=== PATIENT | male | born 1960 | race Caucasian/White ===

== ENCOUNTER → 2016-09-01 | Outpatient (CLI) | payer OTHER ==
[2016-09-01 16:41] LABS: ALT 29 U/L (21-72); AST 25 U/L (17-59); Alkaline Phosphatase 100 U/L (38-126); Anion Gap 10 mmol/L; Blood Urea Nitrogen 21 mg/dL (9-20); Calcium 9.3 mg/dL (8.4-10.2); Carbon Dioxide 31 mmol/L (22-30); Chloride 99 mmol/L (98-107); Glucose 89 mg/dL (74-99); Magnesium 2.3 mg/dL (1.6-2.3); Non-African American GFR(MDRD) >60 (>60 ml/min/1.73 sqM); Potassium 4.5 mmol/L (3.5-5.1); Sodium 140 mmol/L (137-145); Total Bilirubin 0.5 mg/dL (0.2-1.3)
== END | disposition home or self-care (01) ==
LOC: LABWHC1 15:59
PROVIDERS: ATTEND Internal Medicine Clinical Cardiac Electrophysiology
DX: I50.9 Heart failure, unspecified (principal)
CPT/HCPCS: 36415; 80053; 83735

== ENCOUNTER → 2016-11-19 | Outpatient (CLI) | payer OTHER ==
[2016-11-19 07:14] LABS: Blood Urea Nitrogen 23 mg/dL (9-20); Non-African American GFR(MDRD) >60 (>60 ml/min/1.73 sqM)
--- NOTE | 2016-11-19 12:26 | CT ---
EXAMINATION TYPE: CT abdomen wo/w con DATE OF EXAM: 11/19/2016 COMPARISON: NONE INDICATION: Liver Mass DLP: 1922.30 mGycm, Automated exposure control for dose reduction was used. CONTRAST: 100 ml mL of Omnipaque 300. Study performed with Oral Contrast TECHNIQUE: Axial images were obtained from above the diaphragm to the pubic rami in the axial plane a t 5 mm thick sections. Reconstructed images are reviewed on the computer in the coronal plane. FINDINGS: Limited CT sections are obtained the lung bases. Minimal linear opacities in the lingula, likely on the basis of atelectasis. CT ABDOMEN: Liver: Normal Spleen: Normal Pancreas: Normal Adrenal glands: The adrenal glands are normal. Gallbladder: Normal Kidneys: No masses are evident. No hydronephrosis is present. No cysts are present. Delayed images were obtained through the kidneys, which remain unremarkable. Aorta: Vascular calcification is within the aorta. Inferior vena cava: Normal. CT PELVIS: Limited to the upper pelvis. Loops of bowel within the abdomen and pelvis are normal. There are loops of bowel which are incom pletely distended or lack oral contrast limiting their evaluation. Appendix: Normal as visualized. Osseous structures: No suspicious lytic or sclerotic lesions. IMPRESSIONS: 1. No suspicious hepatic lesion. If there are comparison images which indicate a hepatic mass, murtaza rison with these images would be useful. Otherwise, MRI with contrast may be more sensitive for subtl e hepatic lesions.
== END | disposition home or self-care (01) ==
LOC: RADCTMAIN 06:38
PROVIDERS: ATTEND Family Medicine
DX: R16.0 Hepatomegaly, not elsewhere classified (principal)
CPT/HCPCS: 82565; 84520; 74170; 36415; Q9967

== ENCOUNTER → 2018-05-13 | Outpatient (CLI) | payer OTHER ==
[2018-05-13 10:16] LABS: Anion Gap 7 mmol/L; Blood Urea Nitrogen 21 mg/dL (9-20); Calcium 9.3 mg/dL (8.4-10.2); Carbon Dioxide 28 mmol/L (22-30); Chloride 104 mmol/L (98-107); Glucose 107 mg/dL (74-99); Potassium 4.9 mmol/L (3.5-5.1); Sodium 139 mmol/L (137-145)
== END | disposition home or self-care (01) ==
LOC: LABPAT 09:12
PROVIDERS: ATTEND Internal Medicine Clinical Cardiac Electrophysiology
DX: Z01.812 Encounter for preprocedural laboratory examination (principal); I50.22 Chronic systolic (congestive) heart failure; Z95.810 Presence of automatic (implantable) cardiac defibrillator
CPT/HCPCS: 36415; 80048

== ENCOUNTER 2018-05-25 07:47 | Day surgery (SDC) | payer OTHER ==
[2018-05-18 12:07] VITALS: BMI 36.0
[~2018-05-25 07:47] MED LIST: SODIUM CHLORIDE 0.9% 1,000 ML IV SCH
[2018-05-25 08:37] VITALS: BP 109/65; PULSE 59; RESP 18; TEMP 98
--- NOTE | 2018-05-25 11:12 | P.PCN ---
Preoperative Diagnosis: Diagnosis Reduced Bi V pacing on account of over sensing of the P wave and the T waves Cinefluoroscopy of the leads Cinefluoroscopy revealed that the atrial lead is in stable position and the right atrial appendage anterolaterally, RV ICD lead in the septum of the right ventricle and LV lead also in the lateral/posterior lateral vein stable. No lead dislodgment ICD interrogation with reprogramming ICD was interrogated and reprogrammed 1. The pacemaker and ICD maxim sensitivity was decoupled 2. RV sensitivity, pacing, changed to 0.5 mV 3. Increased post paced tachycardia from 0 ms to 95 ms, post Bi V pacing 4. Increased threshold start from 1 mV to 1.3 mV for RV 5. LV offset of 35 ms 6. Short AV delay of 130 milliseconds Patient was observed for any over sensing of P waves P waves. None noted after these changes are made in different positions: supine, left lateral, right lateral, sitting up Condition: stable
== END 2018-05-25 10:27 | disposition home or self-care (01) ==
LOC: CATHEP 07:47
PROVIDERS: ATTEND Internal Medicine Clinical Cardiac Electrophysiology
DX: Z45.02 Encounter for adjustment and management of automatic implantable cardiac defibrillator (principal); I10 Essential (primary) hypertension; I50.22 Chronic systolic (congestive) heart failure; G47.33 Obstructive sleep apnea (adult) (pediatric); I47.1 Supraventricular tachycardia; I42.9 Cardiomyopathy, unspecified; I44.7 Left bundle-branch block, unspecified; Z79.82 Long term (current) use of aspirin; Z79.899 Other long term (current) drug therapy; Z72.0 Tobacco use
CPT/HCPCS: 76000; 93642

== ENCOUNTER → 2018-12-27 | Outpatient (CLI) | payer OTHER ==
--- NOTE | 2018-12-27 22:23 | PN ---
PROGRESS NOTE 58-year-old male patient coming in for annual check regarding obstructive sleep apnea. The patient had an AHI of 17 consistent with moderate to severe disease and the patient had been on a CPAP pressure of 15 cm of water. He has severe cardiomyopathy and is a recipient of an AICD implant. He does not have any active manifestations of congestive heart failure. No cardiac events over the past 1 year. He is still using his CPAP which is set at a pressure of 15 cm of water. Based on the compliance data, the patient has been utilizing his CPAP more than 4 hours 100% of the time. He is using a Mirage Quattro full face mask. His leak is 20 L/minute. His AHI is down to 0.2. He has no other new complaints otherwise for now. REVIEW OF SYSTEMS: Fourteen-point review of system was done and positive findings are mentioned above in the history of present illness. PHYSICAL EXAMINATION: BP is 106/63, pulse 59, respirations 16, temp 98.5 saturation 95% on room air. Weight is 235, height is 5 feet 6 inches, [place] score is a 2, BMI 37.3. General appearance is calm and comfortable. Head is atraumatic, normocephalic. NECK: Supple. No JVD. No goiter or neck masses. LUNGS: Clear to auscultation. HEART: Sounds regular rate and rhythm. Normal S1, S2. No S3. No murmurs. ABDOMEN: Soft, nontender. No organomegaly. EXTREMITIES: No edema. No cyanosis or clubbing. NEUROLOGIC: Alert and oriented x3. No focal neurological deficits. PSYCHIATRIC: Negative for anxiety or depression. SKIN: Negative for any wounds or ulceration pressure. IMPRESSION: 1. Obstructive sleep apnea moderately severe AHI of 17, currently on CPAP pressure of 15. 2. Obesity with interval 9 pounds weight loss. 3. Cardiomyopathy with previous AICD placement. PLAN: 1. Dropped CPAP pressure down to 13 cm of water. 2. Offer this patient a DreamWear under the nose medium size. 3. Encourage further weight loss. 4. Tight control of cardiovascular risk factors. 5. See me back in a year's time. Earlier if needed. Treatment is successful for now. MMODL / IJN: [id number] /
== END | disposition home or self-care (01) ==
LOC: SLEEP 16:33
PROVIDERS: ATTEND Internal Medicine Critical Care Medicine
DX: G47.33 Obstructive sleep apnea (adult) (pediatric) (principal); E66.9 Obesity, unspecified; I42.9 Cardiomyopathy, unspecified; R63.4 Abnormal weight loss; Z95.810 Presence of automatic (implantable) cardiac defibrillator; Z99.89 Dependence on other enabling machines and devices

== ENCOUNTER → 2019-04-08 | Outpatient (CLI) | payer OTHER ==
[2019-04-08 17:28] LABS: African American GFR (CKD) 84.1 (60.0-200.0); Albumin 4.2 g/dL (3.80-4.90); Albumin/Globulin Ratio 1.68 (1.60-3.17); Anion Gap 5.4 mmol/L (4.00-12.00); BUN/Creat Ratio 26.36 Ratio (12.00-20.00); Calcium 9.2 mg/dL (8.7-10.3); Carbon Dioxide 29.6 mmol/L (21.6-31.8); Chol/HDL Ratio 4.06; Globulin 2.5 g/dL (1.6-3.3); Potassium 4.5 mmol/L (3.5-5.5); Total Bilirubin 0.4 mg/dL (0.2-1.2); Total Protein 6.7 g/dL (6.2-8.2)
== END | disposition home or self-care (01) ==
LOC: LABWHC1 08:33
PROVIDERS: ATTEND Internal Medicine Clinical Cardiac Electrophysiology
DX: I50.9 Heart failure, unspecified (principal)
CPT/HCPCS: 36415; 80053; 80061; 84443

== ENCOUNTER 2020-09-12 09:00 | Day surgery (SDC) | payer BC, OTHER ==
[2020-09-11 10:48] VITALS: BMI 37.4
[2020-09-12 09:30] VITALS: BP 113/71; PULSE 76; RESP 18; TEMP 97.7
[2020-09-12] MEDS ORDERED: IOPAMIDOL-250 50ML BTL IV ONE (11:01)
--- NOTE | 2020-09-12 11:49 | P.EPCON ---
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 Cine fluoroscopy of the leads was performed. This was evaluated under magnified views. No fractures or breaks noted Impression Occluded left axillary/subclavian venous junction with collaterals No fractures or breaks noted on the RV lead Plan Observation for now, watch lead impedances and 4 episodes of noise
== END 2020-09-12 11:48 | disposition home or self-care (01) ==
LOC: CATHEP 09:00
PROVIDERS: ATTEND Internal Medicine Clinical Cardiac Electrophysiology
DX: Z45.02 Encounter for adjustment and management of automatic implantable cardiac defibrillator (principal); I42.8 Other cardiomyopathies; I82.B12 Acute embolism and thrombosis of left subclavian vein
CPT/HCPCS: 36005; 75820; Q9966

== ENCOUNTER → 2020-10-11 | Outpatient (CLI) | payer BC, OTHER ==
[2020-10-11 10:35] LABS: HCT 44.4 % (39.0-53.0); HGB 14.5 gm/dL (13.0-17.5); MCH 29.4 pg (25.0-35.0); MCHC 32.7 g/dL (31.0-37.0); Mean Platelet Volume 7.8; Platelet Count 211 k/uL (150-450); RBC 4.93 m/uL (4.30-5.90); RDW 13.3 % (11.5-15.5); WBC 9.9 k/uL (3.8-10.6)
[2020-10-11 10:51] LABS: African American GFR (CKD) >90 (>60 ml/min/1.73 sqM); Anion Gap 8 mmol/L; Blood Urea Nitrogen 20 mg/dL (9-20); Carbon Dioxide 28 mmol/L (22-30); Chloride 104 mmol/L (98-107); Non-African American GFR(CKD) >90 (>60 ml/min/1.73 sqM); Potassium 4.4 mmol/L (3.5-5.1); Sodium 140 mmol/L (137-145)
== END | disposition home or self-care (01) ==
LOC: LABPAT 09:39
PROVIDERS: ATTEND Internal Medicine Clinical Cardiac Electrophysiology
DX: Z01.812 Encounter for preprocedural laboratory examination (principal); I42.8 Other cardiomyopathies
CPT/HCPCS: 80051; 82565; 84520; 85027

== ENCOUNTER 2020-10-22 08:51 | Day surgery (SDC) | payer BC, OTHER ==
[2020-10-17 11:47] VITALS: BMI 36.0
[~2020-10-22 08:51] MED LIST changes: +ceFAZolin 1 GM in SODIUM CHLORIDE 0.9% 250 ML IRRIGATION PRN
[2020-10-22 09:17] VITALS: RESP 18; TEMP 98
[2020-10-22] MEDS ORDERED: fentaNYL (PF) 50 MCG/ML 2 ML AMP ONE (11:07)
[2020-10-22] MEDS ORDERED: MIDAZOLAM 2 MG/2 ML VIAL ONE (11:07)
[2020-10-22] MEDS ORDERED: PROPOFOL 10 MG/ML 20 ML VIAL IV ONE (11:07)
[2020-10-22] MEDS ORDERED: LIDOCAINE 1% INJ 10MG/ML (20 ML MDV) SQ ONE (11:59)
[2020-10-22] MEDS ORDERED: ACETAMINOPHEN TAB 325 MG TAB PO PRN (13:34)
[2020-10-22] MEDS ORDERED: HYDROcodone/APAP 5-325MG 1 EACH TAB PO PRN (13:34)
--- NOTE | 2020-10-22 14:11 | CE ---
CARDIAC ELECTROPHYSIOLOGY REPORT Elias Honeycutt is a 60-year-old male patient with nonischemic cardiomyopathy, status post biventricular ICD for congestive heart failure. His device is at [facility]. He is brought in for a Bi-V ICD generator change. The patient is brought to the EP lab in a fasting state. Written informed consent was obtained prior to the procedure. The left shoulder area was prepped and draped as per protocol and 1% lidocaine was used for local anesthesia. A 4 cm incision was made in the left and carried down to the level of the generator. The generator was explanted. The leads were inspected. The insulation was within normal limits. Partial capsulectomy was performed. The old generator was explanted. The new generator was implanted. This was a [employer] Assura model #PN8361-11Z and serial #[id number], [employer]. The right atrial lead was a model #1688TC, 52 cm in length and serial #[id number]. P- waves were 5 mV. Pacing impedance 430 ohms, pacing threshold 0.6 V at 0.5 milliseconds. The RV lead was a Riata Optim ST. R-waves 6.6 mV. Pacing impedance 390 ohms. Pacing threshold 2 V at 0.5 milliseconds. High-voltage impedance 105 ohms. The LV lead was a model #1156T, 75 cm in length and serial #[id number]. Pacing impedance 400 ohms. Pacing threshold 0.75 V at 0.5 milliseconds. The leads and generator were then placed in subfascial pocket. The wound was closed in 3 layers and dressed per protocol. The device was then programmed according to the MADIT-RIT programming. Occasionally, RV noise has been seen on this lead and therefore fluoroscopy was also performed. DFT testing was also performed last year and his DFT was at 10 joules and VF was detected normally. At this time, the interrogation of the leads were within normal limits. RESULT: Successful biventricular ICD generator change for device at [facility]. MMODL / IJN: [id number] /
[2020-10-22] MEDS ORDERED: ACETAMINOPHEN IV (For NPO) 1,000 MG in EMPTY BAG 1 BAG IVPB ONE (15:00)
[2020-10-22 15:46] VITALS: BP 129/73; PULSE 70
[2020-10-22] MEDS ORDERED: NON FORMULARY DRUG (Spironolactone [Aldactone] 50 MG Tablet) PO SCH (19:00)
[2020-10-22] MEDS ORDERED: SACUBITRIL/VALSARTAN 49 MG-51 MG TABLET PO SCH (21:00)
[2020-10-22] MEDS ORDERED: ATORVASTATIN 10 MG TAB PO SCH (21:00)
[2020-10-22] MEDS ORDERED: carvediloL 12.5 MG TAB PO SCH (21:00)
[2020-10-23] MEDS ORDERED: ASPIRIN 325 MG TAB PO SCH (09:00)
[2020-10-23] MEDS ORDERED: FUROSEMIDE 80 MG TAB PO SCH (09:00)
== END 2020-10-22 16:57 | disposition home or self-care (01) ==
LOC: CATHEP 08:51
PROVIDERS: ATTEND Internal Medicine Clinical Cardiac Electrophysiology
DX: Z45.02 Encounter for adjustment and management of automatic implantable cardiac defibrillator (principal); I42.8 Other cardiomyopathies; I50.21 Acute systolic (congestive) heart failure; I44.7 Left bundle-branch block, unspecified; I47.1 Supraventricular tachycardia; I10 Essential (primary) hypertension; Z20.822 Contact with and (suspected) exposure to COVID-19; G47.33 Obstructive sleep apnea (adult) (pediatric); E78.5 Hyperlipidemia, unspecified; E66.9 Obesity, unspecified; Z68.36 Body mass index [BMI] 36.0-36.9, adult; Z87.891 Personal history of nicotine dependence; Z79.82 Long term (current) use of aspirin; Z79.899 Other long term (current) drug therapy
CPT/HCPCS: 33264; 87635; C1882; J2250; J0690; J2001; J3010; J2704

== ENCOUNTER 2020-10-26 10:13 | Emergency (ER) | payer BC, OTHER ==
[2020-10-26 10:28] VITALS: BP 111/84; PULSE 74; RESP 18; TEMP 98.4
--- NOTE | 2020-10-26 10:33 | ED ---
General Adult HPI - General Chief complaint: Skin/Abscess/Foreign Body Stated complaint: recheck Time Seen by Provider: 10/26/20 10:18 Source: patient, RN notes reviewed Mode of arrival: ambulatory - History of Present Illness Initial comments: This is a 58-year-old male who received a pacemaker 4 days ago who is back today for evaluation of the pacemaker site he apparently has some blistering underneath the bandage. He denies any fevers chills nausea vomiting sweats shortness breath or other symptoms no palpitations. No other complaints or modifying factors at this time - Related Data Home Medications Medication Instructions Recorded Confirmed Aspirin 325 mg PO DAILY 07/17/14 10/22/20 Atorvastatin Calcium [Lipitor] 10 mg PO HS 07/17/14 10/22/20 Sacubitril/Valsartan [Entresto 49 1 each PO BID 05/18/18 10/22/20 mg-51 mg Tablet] Carvedilol [Coreg] 12.5 mg PO BID 09/11/20 10/22/20 Furosemide [Lasix] 80 mg PO DAILY 09/11/20 10/22/20 Spironolactone [Aldactone] 50 mg PO 1900 09/11/20 10/22/20 Previous Rx's Medication Instructions Recorded Bacitracin Zinc/Polymyxin B 1 applic TOPICAL BID #15 gm 10/26/20 [Bacitracin-Polymyxin Ointment] Allergies Allergy/AdvReac Type Severity Reaction Status Date / Time No Known Allergies Allergy Verified 10/22/20 09:05 Review of Systems ROS Statement: Those systems with pertinent positive or pertinent negative responses have been documented in the HPI. ROS Other: All systems not noted in ROS Statement are negative. Past Medical History Past Medical History: Skin Disorder, Sleep Apnea/CPAP/BIPAP Additional Past Medical History / Comment(s): see Dr Anand Tipton&P, eczema, History of Any Multi-Drug Resistant Organisms: None Reported Past Surgical History: AICD, Heart Catheterization, Pacemaker Additional Past Surgical History / Comment(s): [facility] [facility] AICD, Past Anesthesia/Blood Transfusion Reactions: No Reported Reaction Type of Cardiac Device: Permanent Pacemaker, AICD Device Placement Date:: 01/23/2013 Past Psychological History: Depression Smoking Status: Former smoker - Past Family History Daughter(s) Family Medical History: Cancer General Exam - General Exam Comments Initial Comments: This is a well-developed well-nourished awake alert oriented 3 male Limitations: no limitations General appearance: alert, in no apparent distress Head exam: Present: atraumatic, normocephalic, normal inspection Eye exam: Present: normal appearance Neck exam: Present: normal inspection. Absent: tenderness, meningismus, ly mphadenopathy Respiratory exam: Present: normal lung sounds bilaterally, other (Examination of the pacemaker site I did remove the bandage was approximate 1 cm by half a centi meter in diameter Maricruz seen on the bandage adhesive. The pacemaker site is Steri-Stripped and appears to be intact with no evidence of any drainage or erythema or discharge.). Absent: respiratory distress, wheezes, rales, rhonchi, stridor Cardiovascular Exam: Present: regular rate, normal rhythm, normal heart sounds. Absent: systolic murmur, diastolic murmur, rubs, gallop, clicks Back exam: Present: normal inspection Neurological exam: Present: alert, oriented X3, CN II-XII intact Psychiatric exam: Present: normal affect, normal mood Skin exam: Present: warm, dry, other (As above) Course Vital Signs 10/26/20 10:23 Temperature 98.4 F Pulse Rate 74 Respiratory 18 Rate Blood Pressure 111/84 O2 Sat by Pulse 95 Oximetry Medical Decision Making - Medical Decision Making The patient was seen in the emergency department by Dr. Oliveira'll be placed on bacitracin ointment he will be discharged Disposition Clinical Impression: Blistered skin, Pacemaker, Wound of skin Disposition: HOME SELF-CARE Condition: Good Prescriptions: Bacitracin Zinc/Polymyxin B [Bacitracin-Polymyxin Ointment] 1 applic TOPICAL BID #15 gm Is patient prescribed a controlled substance at d/c from ED?: No Referrals: Dharmesh Callahan MD [Primary Care Provider] - 1-2 days
[2020-10-26] MEDS ORDERED: BACITRACIN OINT 1 EACH PACKET TOPICAL ONE (11:34)
== END 2020-10-26 11:42 | disposition home or self-care (01) ==
LOC: EC 10:13
DX: S20.329A Blister (nonthermal) of unspecified front wall of thorax, initial encounter (principal); Z79.82 Long term (current) use of aspirin; Z87.891 Personal history of nicotine dependence; Z95.0 Presence of cardiac pacemaker; X58.XXXA Exposure to other specified factors, initial encounter
CPT/HCPCS: 99283

== ENCOUNTER → 2020-11-26 | Outpatient (CLI) | payer BC, OTHER ==
--- NOTE | 2020-11-26 16:02 | PN ---
PROGRESS NOTE This is a followup study at the sleep center. This patient is known to me regarding his obstructive sleep apnea. The patient is also known to have history of coronary artery disease, ischemic cardiomyopathy with systolic heart failure. The patient has an AICD pacemaker in place. In terms of obstructive sleep apnea, the patient was diagnosed having moderate to severe disease with an AHI of 17 and the patient continues to be on CPAP therapy at a pressure of 13 cm of water. His treatment has been successful over the years and the patient is coming in for a routine annual check. For now, he is still at the pressure of 13. He is calm and comfortable. He does not have any issues with respiratory difficulties at nighttime. He is waking up refreshed and alert during the day. No angina. No palpitations. No shortness of breath. No decompensated heart failure or signs of the heart failure at this point in time. In terms of his compliance data, the patient has been utilizing his machine every day without any interruption. His compliancy for 30 days is at 100%. He has been averaging around 8.5 hours of CPAP use per night. He is using a Dream Wear fullface mask large size and his leak is in order of 97 L/minute, which is a high amount of leak. Nevertheless, the patient is not having any issues with the success of treatment. His AHI is down to 0.7. Otherwise, the patient has no other new complaints. No cough. No sputum production. No chest tightness. No wheezing. No other significant events over the past 12 months. MEDICATION CURRENTLY: Includes Entresto, atorvastatin, Lipitor, Coreg, and aspirin. REVIEW OF SYSTEMS: Fourteen-point review of system was done. Positive findings are all mentioned above in history of present illness. PHYSICAL EXAMINATION: BP is 113/57, pulse 74, respirations 16, temperature 97.1, saturation 99% on room air. Weight is 240. Height is 5 feet 6 inches. [place] score of 4. BMI 38.7. GENERAL APPEARANCE: Calm comfortable in no acute distress. HEAD is atraumatic, normocephalic. NECK: Supple. There is no JVD. No goiter or neck masses. Mallampati class 4. LUNGS: Clear to auscultation. HEART: Heart sounds are regular rate and rhythm. Normal S1, S2. No S3, S4. No murmurs. ABDOMEN: Soft, nontender. No organomegaly. EXTREMITIES: No edema. No cyanosis or clubbing. IMPRESSION: 1. Symptomatic obstructive sleep apnea AHI of 17 adequately treated with a CPAP pressure of 13 cm of water. Treatment continues to be successful. 2. Obesity without any significant interval weight change. His current body weight is down to 40 with a body mass index of 38.7. 3. Hypersomnia recovered [place] score is at 4. 4. Cardiomyopathy, compensated. 5. History of AICD/pacemaker insertion. 6. History of coronary artery disease. PLAN: 1. Keep CPAP therapy same level of pressure. 2. Offer the patient a Dream Wear fullface mask medium size rather than a large to improved underlying air leaks. 3. Encourage weight loss. 4. Optimize cardiovascular risk factors. 5. Refills were given regarding supplies. See me back in a year's time in followup. MMTONIL / ERINN: [id number] /
== END ==
LOC: SLEEP 13:33
PROVIDERS: ATTEND Internal Medicine Critical Care Medicine
DX: G47.33 Obstructive sleep apnea (adult) (pediatric) (principal); E66.9 Obesity, unspecified; I42.9 Cardiomyopathy, unspecified; Z95.0 Presence of cardiac pacemaker; I25.10 Atherosclerotic heart disease of native coronary artery without angina pectoris; Z68.38 Body mass index [BMI] 38.0-38.9, adult; Z79.899 Other long term (current) drug therapy; Z79.82 Long term (current) use of aspirin; Z99.81 Dependence on supplemental oxygen; Z87.891 Personal history of nicotine dependence

== ENCOUNTER → 2021-10-03 | Outpatient (CLI) | payer OTHER ==
[2021-10-03 19:13] LABS: HGB 14.9 g/dL (13.0-17.0); MCV 90.2 fL (80.0-97.0); Mean Platelet Volume 11.1 fL (9.5-12.2); NRBC Per 100 WBC 0 /100 WBCS (0.0-0.0); Platelet Count 219 X 10*3/uL (140-440); RBC 5.32 X 10*6/uL (4.40-5.60); RDW 13.7 % (11.5-14.5); WBC 9.78 X 10*3/uL (4.50-10.00)
[2021-10-03 19:30] LABS: ALT 16 U/L (10-49); AST 20 U/L (14-35); Albumin 4.5 g/dL (3.8-4.9); Albumin/Globulin Ratio 1.32 (1.60-3.17); Alkaline Phosphatase 105 U/L (41-126); BUN/Creat Ratio 18.33 Ratio (12.00-20.00); Blood Urea Nitrogen 16.5 mg/dL (9.0-27.0); Calcium 9.1 mg/dL (8.7-10.3); Carbon Dioxide 27.3 mmol/L (20.0-27.5); Chloride 101 mmol/L (96-109); Chol/HDL Ratio 3.82 Ratio; Globulin 3.4 g/dL (1.6-3.3); Glucose 114 mg/dL (70-110); LDL Cholesterol,Calculated 90.8 mg/dL (0.0-131.0); Magnesium 2.3 mg/dL (1.5-2.4); Non-African American GFR(CKD) 90.6 (60.0-200.0); Potassium 4.2 mmol/L (3.5-5.5); Sodium 139 mmol/L (135-145); Total Protein 7.9 g/dL (6.2-8.2)
== END | disposition home or self-care (01) ==
LOC: LABWHC1 12:00
PROVIDERS: ATTEND Nurse Practitioner Adult Health
DX: E78.5 Hyperlipidemia, unspecified (principal); I10 Essential (primary) hypertension; I47.1 Supraventricular tachycardia; I42.8 Other cardiomyopathies
CPT/HCPCS: 36415; 80053; 80061; 83735; 84443; 85027

== ENCOUNTER → 2022-02-10 | Outpatient (CLI) | payer OTHER ==
--- NOTE | 2022-02-10 16:04 | P.PN ---
Subjective Progress Note Date: 02/10/22 61-year-old male patient is being seen in follow-up regarding his obstructive sleep apnea. The patient has an extensive cardiac disease. The patient is known to have CAD and ischemic cardiomyopathy with impaired systolic heart failure. The patient has AICD in place and the patient also has been on a co mbination of treatment including Entresto, Lasix, Aldactone, and Coreg. The patient also has an AICD in place. No sign cardiac events. The patient is still doing well. The patient has been utilizing his CPAP there. The patient's weight has remained essentially stable without any interval weight gain or weight loss. In terms of his sleep apnea, the patient has moderate severe disease with an AHI of 17 and the patient continues to be on a CPAP pressure of 13 cm of water. The patient is using a large size dreamware fullface mask. His treatment has remained successful. I checked the compliancy on his machine and the patient has been utilizing his machine every night without any interruption in his compliancy for more than 4 hours of usage is in order of 100% and the patient has been averaging around 8.8 hours of CPAP use per night. His leak is in the order of 73 L per minute. Despite think she is really, his treatment successful and his AHI is down to 0.2. He has no complaints. No other episodes of chest pain or shortness of breath or heartburn overnight. He is waking up refreshed and alert during the day. His machine is becoming somewhat malfunctioning and his is exceeded its lifespan in terms of motor life and it is not sending signals through the wifi Objective - Exam BP is 152/73 with a pulse of 63 respiration of 18 and the temperature is 96.9 and oxygen saturations 95% and the weight is 245 and [place] score is at 2 The patient appeared well nourished and normally developed. Vital signs as documented. Head exam is unremarkable. No scleral icterus or corneal arcus noted. Neck is without jugular venous distension, thyromegaly, or carotid bruits. Carotid upstrokes are brisk bilaterally. Lungs are clear to auscultation and percussion. Cardiac exam reveals the PMI to be normally sized and situated. Rhythm is regular. First and second heart sounds normal. No murmurs, rubs or gallops. Abdominal exam reveals normal bowel sounds, no masses, no organomegaly and no aortic enlargement. Extremities are nonedematous and both femoral and pedal pulses are normal.Examination of the skin revealed no evidence of significant rashes, suspicious appearing nevi or other concerning lesions. And the patient has a AICD pocket over the left anterior chest area.Neurologically, the patient is awake and alert and the patient does not have any focal neurological deficit. Cranial nerves are essentially intact. Assessment and Plan Plan: Obstructive sleep apnea with an AHI of 17. The patient continues to undergo successful treatment at a pressure of 13 cm of water. Chronic hypersomnia, recovered upper score is down to 2 Obesity with a stable body weight at 245 pounds Coronary artery disease Ischemic cardiomyopathy currently receiving medical treatment and the patient also has an AICD in place, no cardiac events reported or the past 1 year. Hyperlipidemia Hypertension Plan Continue same cardiac medications Follow-up with cardiology regarding his coronary myopathy No signs of any overt heart failure The patient will be given a new CPAP unit. A prescription was sent to his DME to offer him a newer generation ResMed 11 and at the same time a G were full facemask medium size. I'm going to set up his machine at a pressure of 13 cm of water which has proven to be successful in treating his sleep breathing disorder. The patient's treatment remains successful we'll continue to follow and will make further recommendations. The patient will see back in a year's time in follow-up.
== END ==
LOC: SLEEP 15:06
PROVIDERS: ATTEND Internal Medicine Critical Care Medicine
DX: G47.33 Obstructive sleep apnea (adult) (pediatric) (principal); E66.9 Obesity, unspecified; I25.10 Atherosclerotic heart disease of native coronary artery without angina pectoris; I25.5 Ischemic cardiomyopathy; E78.5 Hyperlipidemia, unspecified; I10 Essential (primary) hypertension; Z99.89 Dependence on other enabling machines and devices; Z87.891 Personal history of nicotine dependence

== ENCOUNTER 2023-12-22 07:35 | Day surgery (SDC) | payer MEDICARE, OTHER ==
[2023-12-20 14:22] VITALS: BMI 36.8
[~2023-12-22 07:35] MED LIST changes: -SODIUM CHLORIDE 0.9% 1,000 ML IV SCH; +TETRACAINE 0.5% OPHTH (PF) DROPS 4 ML BTL OP PRN; -ceFAZolin 1 GM in SODIUM CHLORIDE 0.9% 250 ML IRRIGATION PRN
[2023-12-22 08:02] VITALS: RESP 16; TEMP 97.8
[2023-12-22] MEDS: CYCLOPENTOLATE 1% OPHTH SOLN 2 ML BTL OP PRN (08:06)
[2023-12-22] MEDS: PHENYLEPHRINE 2.5% OPHTH DRP 2ML OP PRN (08:10)
[2023-12-22 08:17] LABS: Glucose,Whole Blood 107 mg/dL (70-110)
[2023-12-22] MEDS: LACTATED RINGERS 1,000 ML IV SCH (08:27)
[2023-12-22] MEDS: IV FLUID CONTINUATION 1,000 ML IV ONE (08:34)
[2023-12-22] MEDS ORDERED: fentaNYL (PF) 50 MCG/ML 2 ML AMP ONE (09:36)
[2023-12-22] MEDS ORDERED: MIDAZOLAM 2 MG/2 ML VIAL ONE (09:36)
[2023-12-22] MEDS: EPINEPHrine (PF) 0.3 ML in BALANCED SALT IRRIG SOLN COMB2 500 ML IRRIGATION ONE (09:51)
[2023-12-22] MEDS: MOXIFLOXACIN HCL 0.5% DROPS 3 ML BTL OP PRN (09:51)
[2023-12-22] MEDS: HYALURONATE SODIUM INTRAOCULAR 1 EACH SYRINGE (12MG/ML) INTRAOCULA ONE (09:52)
[2023-12-22] MEDS: LIDOCAINE 1% (PF) 10MG/ML VIAL MISCELLANE ONE (09:52)
[2023-12-22] MEDS: BALANCED SALT IRRIG SOLN COMB2 15 ML IRRIG.SOLN INTRAOCULA ONE (09:52)
[2023-12-22] MEDS: TIMOLOL 0.5% OPHTH DROPS 5 ML BTL OP PRN (09:52)
--- NOTE | 2023-12-22 10:07 | P.OP ---
Date of Procedure: 12/22/23 Preoperative Diagnosis: NS & CS & PSC Postoperative Diagnosis: same Procedure(s) Performed: PIOL, OS Implants: MX60E 21.50 Anesthesia: MAC Surgeon: Vipul Lowry Pathology: none sent Condition: stable Disposition: same day Indications for Procedure: blurry vision Operative Findings: no complications
[2023-12-22 10:33] VITALS: BP 104/69; PULSE 61
--- NOTE | 2023-12-22 12:00 | OP ---
OPERATIVE REPORT DATE OF SERVICE : 12/22/2023 PREOPERATIVE DIAGNOSIS: Nuclear sclerosis, cortical sclerosis, posterior subcapsular cataract. POSTOPERATIVE DIAGNOSIS: Nuclear sclerosis, cortical sclerosis, posterior subcapsular cataract. OPERATION: Phacoemulsification of cataract and interocular lens implant, left eye. ESTIMATED BLOOD LOSS: Zero. SPECIMEN TAKEN: None. NARRATIVE: After obtaining the appropriate consent, the patient was brought to the operating room where the patient was placed under cardiac monitoring and prepped and draped in the usual sterile manner. At the 5 o'clock position, a 15-degree super sharp blade was used to create a paracentesis followed by instillation of 1% Xylocaine MPF 50:50 mix with BSS into the anterior chamber. This was followed by Amvisc viscoelastic to stabilize the anterior chamber. At the 3 o'clock position a self-sealing corneal flap incision was created using 2.8 mm jami keratome. A cystotome was used to initiate a continuous tear capsulorrhexis which was completed with the Utrata forceps. A Binkhorst cannula was used to hydrodissect the lens nucleus followed by hydrodelineation. Phacoemulsification of the lens was performed utilizing phacochop in 10.12 seconds at 8.5% power. The remaining cortical material was removed using the irrigation aspiration mode followed by additional 1% Xylocaine MPF into the anterior chamber followed by viscoelastic to stabilize the capsular bag. A [employer]ch [employer] Lomb MX60E 21.5 diopters posterior chamber lens was placed into the capsular bag without difficulty. The remaining viscoelastic material was removed from the anterior chamber with the irrigation/aspiration. Balanced salt solution was used to normalize the intraocular pressure. The incision was checked for watertight integrity. The patient then received 2 drops of 0.5% timolol followed by 2 drops Vigamox, was lightly patched and shielded in the usual manner. There were no complications from the procedure. The patient tolerated the procedure well and was returned to recovery in good condition. MMODL / IJN: [id number] /
== END 2023-12-22 10:49 | disposition home or self-care (01) ==
LOC: OR 07:35
PROVIDERS: ATTEND Ophthalmology
DX: H25.012 Cortical age-related cataract, left eye (principal); H25.12 Age-related nuclear cataract, left eye; H25.042 Posterior subcapsular polar age-related cataract, left eye; E78.00 Pure hypercholesterolemia, unspecified; I11.9 Hypertensive heart disease without heart failure; J43.9 Emphysema, unspecified; G47.33 Obstructive sleep apnea (adult) (pediatric); Z95.810 Presence of automatic (implantable) cardiac defibrillator; Z87.891 Personal history of nicotine dependence; Z79.899 Other long term (current) drug therapy; Z79.84 Long term (current) use of oral hypoglycemic drugs; Z79.82 Long term (current) use of aspirin
CPT/HCPCS: 66984; C1780; J2250; J0171; J3010; J2001

== ENCOUNTER 2024-01-26 10:40 | Day surgery (SDC) | payer MEDICARE ==
[~2024-01-26 10:40] MED LIST changes: +LACTATED RINGERS 1,000 ML IV SCH; +LIDOCAINE 1% (10MG/ML) FOR IV START INTRADERMA PRN
[2024-01-26 11:05] VITALS: TEMP 97.5
[2024-01-26 11:13] LABS: Glucose,Whole Blood 104 mg/dL (70-110)
[2024-01-26] MEDS: CYCLOPENTOLATE 1% OPHTH SOLN 2 ML BTL OP PRN (11:16)
[2024-01-26] MEDS: IV FLUID CONTINUATION 1,000 ML IV ONE (11:18)
[2024-01-26] MEDS: PHENYLEPHRINE 2.5% OPHTH DRP 2ML OP PRN (11:19)
[2024-01-26] MEDS ORDERED: MIDAZOLAM 2 MG/2 ML VIAL ONE (12:05)
[2024-01-26] MEDS ORDERED: fentaNYL (PF) 50 MCG/ML 2 ML AMP ONE (12:05)
[2024-01-26] MEDS: EPINEPHrine (PF) 0.3 ML in BALANCED SALT IRRIG SOLN COMB2 500 ML IRRIGATION ONE (12:21)
[2024-01-26] MEDS: HYALURONATE SODIUM INTRAOCULAR 1 EACH SYRINGE (12MG/ML) INTRAOCULA ONE (12:22)
[2024-01-26] MEDS: LIDOCAINE 1% (PF) 10MG/ML VIAL MISCELLANE ONE (12:23)
[2024-01-26] MEDS: BALANCED SALT IRRIG SOLN COMB2 15 ML IRRIG.SOLN INTRAOCULA ONE (12:23)
[2024-01-26] MEDS: TIMOLOL 0.5% OPHTH DROPS 5 ML BTL OP PRN (12:24)
[2024-01-26] MEDS: MOXIFLOXACIN HCL 0.5% DROPS 3 ML BTL OP PRN (12:24)
[2024-01-26] MEDS: ACETYLCHOLINE CHLORIDE 10 MG/ML 2 ML KIT INTRAOCULA ONE (12:42)
--- NOTE | 2024-01-26 12:55 | P.OP ---
Date of Procedure: 01/26/24 Preoperative Diagnosis: NS & CS & PSC Postoperative Diagnosis: same Procedure(s) Performed: PIOL, OD Implants: MX60E 21.50 Anesthesia: MAC Surgeon: Vipul Lowry Pathology: none sent Condition: stable Disposition: same day Indications for Procedure: blurry vision Operative Findings: no complications
[2024-01-26 13:08] VITALS: RESP 16
[2024-01-26 13:14] VITALS: BP 118/73; PULSE 72
--- NOTE | 2024-03-07 09:34 | OP ---
OPERATIVE REPORT DATE OF SERVICE : 01/26/2024 PREOPERATIVE DIAGNOSES: Nuclear sclerosis, cortical sclerosis, posterior subcapsular cataract. POSTOPERATIVE DIAGNOSES: Nuclear sclerosis, cortical sclerosis, posterior subcapsular cataract. OPERATION: Phacoemulsification of cataract and interocular lens implant of the right eye. ESTIMATED BLOOD LOSS: Zero. SPECIMEN TAKEN: None. NARRATIVE: After obtaining the appropriate consent, the patient was brought to the operating room where the patient was placed under cardiac monitoring and prepped and draped in the usual sterile manner. At the 11 o'clock position, a 15-degree super sharp blade was used to create a paracentesis followed by instillation of 1% Xylocaine MPF 50:50 mix with BSS into the anterior chamber. This was followed by Amvisc viscoelastic to stabilize the anterior chamber. At the 9 o'clock position a self-sealing corneal flap incision was created using 2.8 mm jami keratome. A cystotome was used to initiate a continuous tear capsulorrhexis which was completed with the Utrata forceps. A Binkhorst cannula was used to hydrodissect the lens nucleus followed by hydrodelineation. Phacoemulsification of the lens was performed utilizing phacochop in 12.12 seconds at 9.1% power. The remaining cortical material was removed using the irrigation aspiration mode followed by additional 1% Xylocaine MPF into the anterior chamber followed by viscoelastic to stabilize the capsular bag. A Bausch and Lomb LI61AO 21.0 diopters posterior chamber lens was placed into the capsular bag without difficulty. The remaining viscoelastic material was removed from the anterior chamber with the irrigation/aspiration. Balanced salt solution was used to normalize the intraocular pressure. The incision was checked for watertight integrity. The patient then received 2 drops of 0.5% timolol followed by 2 drops Vigamox, was lightly patched and shielded in the usual manner. There were no complications from the procedure. The patient tolerated the procedure well and was returned to recovery in good condition. MMODL / IJN: [id number] /
== END 2024-01-26 13:46 | disposition home or self-care (01) ==
LOC: OR 10:40
PROVIDERS: ATTEND Ophthalmology
DX: H25.11 Age-related nuclear cataract, right eye (principal); H25.041 Posterior subcapsular polar age-related cataract, right eye; I10 Essential (primary) hypertension; E78.5 Hyperlipidemia, unspecified; J44.9 Chronic obstructive pulmonary disease, unspecified; G47.33 Obstructive sleep apnea (adult) (pediatric); F32.A Depression, unspecified; Z87.891 Personal history of nicotine dependence; Z95.810 Presence of automatic (implantable) cardiac defibrillator; Z79.899 Other long term (current) drug therapy

== ENCOUNTER 2024-01-30 22:21 | Inpatient (IN) | payer MEDICARE ==
[2024-01-30] MEDS: methylPREDNISolone SOD SUCCI 125 MG/2 ML VIAL IV STA (23:04)
[2024-01-30] MEDS: IPRATROPIUM-ALBUTEROL 3 ML NEB INHALATION STA (23:06)
[2024-01-30 23:08] LABS: Basophils # (A) 0.1 k/uL (0-0.2); Basophils % (A) 1 %; Eosinophils # (A) 0.5 k/uL (0-0.7); Eosinophils % (A) 4 %; HCT 49.2 % (39.0-53.0); HGB 15.2 gm/dL (13.0-17.5); Hypochromasia Marked; Lymphocytes # (A) 1.6 k/uL (1.0-4.8); Lymphocytes % (A) 13 %; MCHC 30.8 g/dL (31.0-37.0); MCV 94.1 fL (80.0-100.0); Mean Platelet Volume 8.6; Monocytes # (A) 0.9 k/uL (0-1.0); Monocytes % (A) 8 %; Neutrophils # (A) 8.6 k/uL (1.3-7.7); Neutrophils % (A) 73 %; Platelet Count 229 k/uL (150-450); RBC 5.23 m/uL (4.30-5.90); RDW 14.7 % (11.5-15.5); WBC 11.8 k/uL (3.8-10.6)
--- NOTE | 2024-01-30 23:10 | XR ---
EXAMINATION TYPE: XR chest 1V portable DATE OF EXAM: 01/30/2024 COMPARISON: NONE HISTORY: Dyspnea. TECHNIQUE: Single frontal view of the chest is obtained. FINDINGS: Reticular interstitial changes bilaterally. There is no focal air space opacity, pleural e ffusion, or pneumothorax seen. The cardiac silhouette size is upper limits of normal with dual lead pacemaker/defibrillator. The osseous structures are intact. IMPRESSION: Suspect mild bilateral interstitial fibrosis. No focal acute pulmonary infiltrate.
[2024-01-30 23:17] LABS: Partial Thromboplastin Time 23.8 sec (22.0-30.0); Prothrombin Time 10.7 sec (10.0-12.5)
[2024-01-30 23:26] LABS: ALT 12 U/L (4-49); African American GFR (CKD) >90 (>60 ml/min/1.73 sqM); Anion Gap 5 mmol/L; Blood Urea Nitrogen 15 mg/dL (9-20); Calcium 8.7 mg/dL (8.4-10.2); Carbon Dioxide 29 mmol/L (22-30); Chloride 104 mmol/L (98-107); Glucose 119 mg/dL (74-99); Non-African American GFR(CKD) >90 (>60 ml/min/1.73 sqM); Sodium 138 mmol/L (137-145); Total Bilirubin 0.8 mg/dL (0.2-1.3)
[2024-01-30 23:27] LABS: AST 34 U/L (17-59); Magnesium 2.1 mg/dL (1.6-2.3); Potassium 4.7 mmol/L (3.5-5.1); Total Protein 7.1 g/dL (6.3-8.2)
[2024-01-30 23:28] LABS: Alkaline Phosphatase 107 U/L (38-126)
[2024-01-30 23:33] LABS: NT-Pro-B-Type Natriuretic Pept 557 pg/mL
--- NOTE | 2024-01-31 00:41 | CT ---
EXAMINATION TYPE: CT chest angio for PE DATE OF EXAM: 01/31/2024 COMPARISON: NONE HISTORY: pacemaker went off, shortness of breath, feet swollen. EVAL FOR PE CT DLP: 828.2 mGycm. Automated Exposure Control for Dose Reduction was Utilized. CONTRAST: CTA scan of the thorax is performed with IV Contrast, patient injected with 100 mL of Isovue 370, pul monary embolism protocol. MIP Images are created on CT scanner and reviewed. FINDINGS: LUNGS: Moderate underlying emphysematous change is present. There is tiny right pleural effusion. The re is associated right basilar consolidation and/or atelectasis. No pneumothorax seen bilaterally. MEDIASTINUM: There is satisfactory enhancement of the pulmonary artery and its branches, there is no CT evidence for pulmonary embolism. Some contrast enhancement of the aorta without aneurysm or dissec tion. Prominent lymph nodes throughout the mediastinum greatest at the subcarinal region. No cardiome deejay or pericardial effusion. Multi lead pacemaker/defibrillator is present. OTHER: Right greater than left bilateral gynecomastia. IMPRESSION: 1. No CT evidence for acute pulmonary embolism. 2. Moderate emphysematous change with tiny right pleural effusion and associated right basilar consol idation and/or atelectasis.
[2024-01-31] MEDS ORDERED: ONDANSETRON 4 MG/2 ML VIAL IVP PRN (01:23)
[2024-01-31] MEDS ORDERED: NALOXONE 0.4 MG/ML 1 ML VIAL IV PRN (01:23)
--- NOTE | 2024-01-31 01:27 | ED ---
General Adult HPI - General Chief complaint: Shortness of Breath Stated complaint: IDA Time Seen by Provider: 01/30/24 22:40 Source: patient, RN notes reviewed, old records reviewed Mode of arrival: wheelchair Limitations: no limitations - History of Present Illness Initial comments: Patient is a 63-year-old male who presents emergency department over concern for shortness of breath as well as his defibrillator discharging at home. Patient has a past medical history remarkable for AICD in place, hypertension, hyperlipidemia, CAD. Remote history of smoking. States he does have a history of emphysema as well as CHF. Recently taken off his Lasix. States he has had progressive shortness of breath over the last few days to week with no fevers or cough. Worse with lying down flat which is chronic for him. Worsening lower extremity swelling. This symmetrical. Denies any history of blood clots but is not on blood thinners. States that he was feeling somewhat generalized weakness earlier when his defibrillator did discharge. He believes it happened once. Presented over an hour after this occurred. Had some mild chest discomfort or pressure and was not sure if it was related to discharge or if it occurred before but currently is asymptomatic. Denies chest pain.Denies nausea or vomiting or diaphoresis. Endorses the progressive shortness of breath. Was found to be in the 70%'s in triage. Was brought to room 15 and placed on nonrebreather. I evaluated the patient at this time.Patient does wear CPAP at night. - Related Data Home Medications Medication Instructions Recorded Confirmed Atorvastatin Calcium [Lipitor] 10 mg PO HS 07/17/14 01/26/24 Sacubitril/Valsartan [Entresto 49 1 each PO BID 05/18/18 01/26/24 mg-51 mg Tablet] Spironolactone [Aldactone] 50 mg PO 1900 09/11/20 01/26/24 carvediloL [Coreg] 12.5 mg PO BID 09/11/20 01/26/24 Aspirin EC [Ecotrin Low Dose] 81 mg PO DAILY 12/20/23 01/26/24 Dapagliflozin Propanediol [Farxiga] 10 mg PO DAILY 12/20/23 01/26/24 Sacubitril/Valsartan [Entresto 24 1 each PO BID 12/20/23 01/26/24 mg-26 mg Tablet] Allergies Allergy/AdvReac Type Severity Reaction Status Date / Time No Known Allergies Allergy Verified 01/30/24 22:23 Review of Systems ROS Statement: Those systems with pertinent positive or pertinent negative responses have been documented in the HPI. Review of Systems: CONST: Denies fever EYES: Denies blurry vision ENT: Denies nasal congestion C/V: Denies Chest pain RESP: Endorses shortness of breath GI: Denies abdominal pain : Denies dysuria SKIN: Denies rash. MSK: Denies joint pain. NEURO: Denies headache ROS Other: All systems not noted in ROS Statement are negative. Past Medical History Past Medical History: Eye Disorder, Hyperlipidemia, Hypertension, Skin Disorder, Sleep Apnea/CPAP/BIPAP Additional Past Medical History / Comment(s): see Dr Michel H&P, eczema, BILAT CATARACTS, History of Any Multi-Drug Resistant Organisms: None Reported Past Surgical History: AICD, Heart Catheterization, Pacemaker Additional Past Surgical History / Comment(s): [facility] AICD, eye surgery BL Past Anesthesia/Blood Transfusion Reactions: No Reported Reaction Type of Cardiac Device: Permanent Pacemaker, AICD Device Placement Date:: 01/23/2013 Past Psychological History: Depression Smoking Status: Former smoker Past Alcohol Use History: None Reported Past Drug Use History: None Reported - Past Family History Daughter(s) Family Medical History: Cancer General Exam - General Exam Comments Initial Comments: General: Appears in no acute distress. HEAD: Normal with no signs of head trauma. EYES: PERRLA, EOMI, conjunctiva normal, no discharge. ENT: Hearing grossly intact, normal oropharynx. RESPIRATORY: Wheezy, reduced breath sounds bilaterally. Hypoxic on room air to the 75% with mild increased work of breathing. Improved on nonrebreather as well as with high flow nasal cannula. Work of breathing improved as well. C/V: Regular rate and rhythm. S1 and S2 auscultated, symmetrical lower extremity pitting edema, peripheral pulses 2+ and intact throughout ABD: Abd is soft, nontender, nondistended EXT: Normal range of motion, no obvious deformity SKIN: No rashes or lesions observed on exposed skin. NEURO: Alert and oriented x 4. Limitations: no limitations Course Vital Signs 01/30/24 01/30/24 01/30/24 22:23 22:45 22:51 Temperature 98.8 F Pulse Rate 80 71 74 Respiratory 20 20 Rate Blood Pressure 127/61 120/53 O2 Sat by Pulse 75 L 97 Oximetry 01/30/24 01/30/24 01/30/24 23:13 23:17 23:50 Temperature Pulse Rate 74 70 Respiratory 18 Rate Blood Pressure 115/56 O2 Sat by Pulse 96 96 Oximetry Medical Decision Making - Medical Decision Making Was pt. sent in by a medical professional or institution (, PA, COAL CHUTE WORKER, urgent care, hospital, or care home...) When possible be specific @ -No Did you speak to anyone other than the patient for history (EMS, parent, family, police, friend...)? What history was obtained from this source @ -No Did you review nursing and triage notes (agree or disagree)? Why? @ -I reviewed and agree with nursing and triage notes Were old charts reviewed (outside hosp., previous admission, EMS record, old EKG, old radiological studies, urgent care reports/EKG's, care home records)? Report findings @ -Old charts reviewed including medication list. No significant change when compared with EKG from 2016. Differential Diagnosis (chest pain, altered mental status, abdominal pain women, abdominal pain men, vaginal bleeding, weakness, fever, dyspnea, syncope, headache, dizziness, GI bleed, back pain, seizure, CVA, palpatations, mental health, musculoskeletal)? @ -Differential Dyspnea: Coronary syndrome, arrhythmia, tamponade, asthma, COPD, pulmonary embolism, pneumonia, pneumothorax, pulmonary effusion, anaphylaxis, diabetic ketoacidosis, flailed chest, pulmonary contusion, diaphragmatic rupture, anemia, neuromuscular, this is not meant to be an all-inclusive list. EKG interpreted by me (3pts min.). @ -As above X-rays interpreted by me (1pt min.). @ -Chest x-ray shows findings consistent with interstitial fibrosis. Possible mild pulmonary vascular congestion. CT interpreted by me (1pt min.). @ -CT angiogram of the chest negative for PE. Per radiology, redemonstrates the emphysematous changes with a tiny right pleural effusion and atelectasis. U/S interpreted by me (1pt. min.). @ -None done What testing was considered but not performed or refused? (CT, X-rays, U/S, labs)? Why? @ -None What meds were considered but not given or refused? Why? @ -None Did you discuss the management of the patient with other professionals (professionals i.e. Dr., PA, CO[employer] CH[employer] WORKER, lab, RT, psych nurse, social work professor, nursing clinical director, teacher, information systems security officer, nurse case management)? Give summary @ - Patient's PCP, Dr. Callahan is being covered by [facility]. [facility] Dr. Oconnell accepted the admission. Was smoking cessation discussed for >3mins.? @ -No Was critical care preformed (if so, how long)? @ -Yes, 41 minutes. Were there social determinants of health that impacted care today? How? (Homelessness, low income, unemployed, alcoholism, drug addiction, transportat ion, low edu. Level, literacy, decrease access to med. care, half-way, rehab)? @ -No Was there de-escalation of care discussed even if they declined (Discuss DNR or withdrawal of care, Hospice)? DNR status @ -No What co-morbidities impacted this encounter? (DM, HTN, Smoking, COPD, CAD, Cancer, CVA, ARF, Chemo, Hep., AIDS, mental health diagnosis, sleep apnea, morbid obesity)? @ -CHF, AICD in place, COPD, emphysema. This list is not all inclusive. Was patient admitted / discharged? Hospital course, mention meds given and route, prescriptions, significant lab abnormalities, going to OR and other pertinent info. @ -Based on patient's presentation and physical exam, presents with a one-time defibrillator discharge as well as progressive shortness of breath over the last few days. Currently has no chest pain. Vitals remarkable for hypoxia on room air in the 70%. Improved on high flow nasal cannula at this time at bedside. Oxygenation improved to 94 to 96% on high flow nasal cannula. Remainder the vital signs within acceptable limits. Niccoli, presents as a CHF versus emphysematous changes. Is not on blood thinners. We will obtain cardiopulmonary workup. Patient in agreement this plan. EKG shows paced rhythm with no obvious acute cardiopulmonary process otherwise. No obvious ischemic changes. Laboratory studies remarkable for slight D-dimer elevation of 0.81 as well as undetectable troponin and BNP within normal limits for the patient's age. Remainder the workup unremarkable. Chest x-ray unremarkable. We did obtain a CT PE which was negative for pulmonary embolism. Patient's imaging does show findings consistent with pulmonary fibrosis or interstitial fibrosis. I updated the patient at this time. We did interrogate his device and at time of admission, are still waiting on the results of the interrogation. Patient will be admitted with cardiology evaluation as well as pulmonology evaluation. Echo ordered. Patient given aspirin. Will continue with IV steroids and breathing treatments in addition to IV diuretics as patient presents clinically as a CHF exacerbation. He was in agreement this plan. Resting comfortably at time of admission. Patient's PCP, Dr. Callahan is being covered by [facility]. [facility] Dr. Oconnell accepted the admission. Undiagnosed new problem with uncertain prognosis? @ -No Drug Therapy requiring intensive monitoring for toxicity (Heparin, Nitro, Insulin, Cardizem)? @ -No Were any procedures done? @ -No Diagnosis/symptom? @ -Hypoxic respiratory failure likely secondary to CHF and interstitial fibrosis of the lungs, CHF, defibrillator discharge Acute, or Chronic, or Acute on Chronic? @ -Acute Uncomplicated (without systemic symptoms) or Complicated (systemic symptoms)? @ -Complicated Side effects of treatment? @ -No Exacerbation, Progression, or Severe Exacerbation? @ -No Poses a threat to life or bodily function? How? (Chest pain, [place], [place], pneumonia, PE, COPD, DKA, ARF, appy, cholecystitis, CVA, Diverticulitis, Homicidal, Suicidal, threat to staff... and all critical care pts) @ -Yes - Lab Data Result diagrams: 01/30/24 22:49 01/30/24 22:49 Lab Results 01/30/24 01/30/24 01/30/24 Range/Units 22:49 22:49 22:49 WBC 11.8 H (3.8-10.6) k/uL RBC 5.23 (4.30-5.90) m/uL Hgb 15.2 (13.0-17.5) gm/dL Hct 49.2 (39.0-53.0) % MCV 94.1 (80.0-100.0) fL MCH 29.0 (25.0-35.0) pg MCHC 30.8 L (31.0-37.0) g/dL RDW 14.7 (11.5-15.5) % Plt Count 229 (150-450) k/uL MPV 8.6 Neutrophils % 73 % Lymphocytes % 13 % Monocytes % 8 % Eosinophils % 4 % Basophils % 1 % Neutrophils # 8.6 H (1.3-7.7) k/uL Lymphocytes # 1.6 (1.0-4.8) k/uL Monocytes # 0.9 (0-1.0) k/uL Eosinophils # 0.5 (0-0.7) k/uL Basophils # 0.1 (0-0.2) k/uL Hypochromasia Marked PT 10.7 (10.0-12.5) sec INR 1.0 (<1.2) APTT 23.8 (22.0-30.0) sec D-Dimer (<0.60) mg/L FEU Sodium 138 (137-145) mmol/L Potassium 4.7 (3.5-5.1) mmol/L Chloride 104 (98-107) mmol/L Carbon Dioxide 29 (22-30) mmol/L Anion Gap 5 mmol/L BUN 15 (9-20) mg/dL Creatinine 0.73 (0.66-1.25) mg/dL Est GFR (CKD-EPI)AfAm >90 (>60 ml/min/1.73 sqM) Est GFR (CKD-EPI)NonAf >90 (>60 ml/min/1.73 sqM) Glucose 119 H (74-99) mg/dL Calcium 8.7 (8.4-10.2) mg/dL Magnesium 2.1 (1.6-2.3) mg/dL Total Bilirubin 0.8 (0.2-1.3) mg/dL AST 34 (17-59) U/L ALT 12 (4-49) U/L Alkaline Phosphatase 107 (38-126) U/L Troponin I (0.000-0.034) ng/mL NT-Pro-B Natriuret Pep 557 pg/mL Total Protein 7.1 (6.3-8.2) g/dL Albumin 4.0 (3.5-5.0) g/dL Influenza Type A (PCR) (Not Detectd) Influenza Type B (PCR) (Not Detectd) RSV (PCR) (Not Detectd) SARS-CoV-2 (PCR) (Not Detectd) 01/30/24 01/30/24 01/30/24 Range/Units 22:49 22:49 22:49 WBC (3.8-10.6) k/uL RBC (4.30-5.90) m/uL Hgb (13.0-17.5) gm/dL Hct (39.0-53.0) % MCV (80.0-100.0) fL MCH (25.0-35.0) pg MCHC (31.0-37.0) g/dL RDW (11.5-15.5) % Plt Count (150-450) k/uL MPV Neutrophils % % Lymphocytes % % Monocytes % % Eosinophils % % Basophils % % Neutrophils # (1.3-7.7) k/uL Lymphocytes # (1.0-4.8) k/uL Monocytes # (0-1.0) k/uL Eosinophils # (0-0.7) k/uL Basophils # (0-0.2) k/uL Hypochromasia PT (10.0-12.5) sec INR (<1.2) APTT (22.0-30.0) sec D-Dimer 0.81 H (<0.60) mg/L FEU Sodium (137-145) mmol/L Potassium (3.5-5.1) mmol/L Chloride (98-107) mmol/L Carbon Dioxide (22-30) mmol/L Anion Gap mmol/L BUN (9-20) mg/dL Creatinine (0.66-1.25) mg/dL Est GFR (CKD-EPI)AfAm (>60 ml/min/1.73 sqM) Est GFR (CKD-EPI)NonAf (>60 ml/min/1.73 sqM) Glucose (74-99) mg/dL Calcium (8.4-10.2) mg/dL Magnesium (1.6-2.3) mg/dL Total Bilirubin (0.2-1.3) mg/dL AST (17-59) U/L ALT (4-49) U/L Alkaline Phosphatase (38-126) U/L Troponin I <0.012 (0.000-0.034) ng/mL NT-Pro-B Natriuret Pep pg/mL Total Protein (6.3-8.2) g/dL Albumin (3.5-5.0) g/dL Influenza Type A (PCR) Not Detected (Not Detectd) Influenza Type B (PCR) Not Detected (Not Detectd) RSV (PCR) Not Detected (Not Detectd) SARS-CoV-2 (PCR) Not Detected (Not Detectd) - EKG Data -: EKG Interpreted by Me EKG Comments: 12-lead Electrocardiogram Interpretation Note EKG was reviewed and interpreted by myself. 12-lead ECG performed at 2243 is interpreted by me as revealing ventricular paced rhythm at a rate of 71 beats per minute. Abnormal axis. AK interval is 122 ms, QRS duration is 134 ms, QTc is 442 ms.. There were no ST or T wave abnormalities to suggest myocardial ischemia or injury. R wave progression across the precordium was satisfactory. By my interpretation this EKG is non-diagnostic for acute ischemia. Critical Care Time Critical Care Time: Yes Total Critical Care Time: 41 Disposition Clinical Impression: Hypoxic respiratory failure, CHF (congestive heart failure), Pulmonary fibrosis, Defibrillator discharge Disposition: ADMITTED IP TO THIS [facility] Condition: Serious Referrals: Dharmesh Callahan MD [Primary Care Provider] - 1-2 days Time of Disposition: 01:10
[2024-01-31] MEDS: ASPIRIN 81 MG PO STA (01:41)
[2024-01-31] MEDS: FUROSEMIDE 10 MG/ML 4 ML VIAL IV STA (01:42)
--- NOTE | 2024-01-31 04:23 | P.CNPUL ---
History of Present Illness Consult date: 01/31/24 Requesting physician: Tj Serna Reason for consult: dyspnea, hypoxemia Chief complaint: Shortness of breath, AICD History of present illness: Patient is a 63-year-old male with past medical history significant for obstructive sleep apnea with home CPAP, ischemic cardiomyopathy, AICD, hyp erlipidemia, hypertension, obesity, and former tobacco smoker. Also, believes someone told him he has emphysema. Remote history of tobacco use over 20 years ago. Not currently on any inhalers or nebulized treatments at home. Patient was taken off Lasix approximately 2 months ago. Over this timeframe, he has noticed increased lower extremity swelling and abdominal fullness. He has been progressively more short of breath and fatigued. Last night, he was getting water for his CPAP machine. Became "winded", and felt a thump in his chest. His vision flashed. Never reportedly lost consciousness. Believes his defibrillator fired, which would be the first occurrence. He now has some vague chest discomfort/heaviness. Denies associated palpitations, nausea/vomiting. He called his pottery decorator office, who recommended he come to the emergency department to be evaluated. He was noted to be hypoxic. Originally, placed on a nonrebreather. CTA of the chest did not show any evidence for acute pulmonary embolism. There is moderate emphysematous changes with tiny bilateral pleural effusions and associated atelectasis. NT proBNP only 557. Initial troponin < 0.012. EKG showing ventricularly paced rhythm. Patient is being evaluated in the emergency department. Currently on 9 L high flow nasal cannula. SpO2 is 96%. Blood pressure normotensive. Rhythm appears ventricularly paced on bedside monitor. Afebrile. CBC: WBC count 11.8, hemoglobin 15.2, hematocrit 49.2, platelets 229. BMP is unremarkable. Negative for influenza, RSV, COVID. He has been started on Lasix 40 mg twice daily. Has already diuresed 750 mL of urine. Patient's AICD/pacemaker has not been interrogated, awaiting report. No further cardiac events while in the emergency department. Review of Systems REVIEW OF SYSTEMS: CONSTITUTIONAL: Admits weight gain, increased fatigue and weakness, and increased lower extremity swelling. Denies sick contacts. Denies fevers. EYES: Denies change in vision. EARS, NOSE, MOUTH, THROAT: Denies headaches, denies sore throat. CARDIOVASCULAR: HPI. RESPIRATORY: Denies cough, congestion, production, or hemoptysis. Admits shortness of breath as described in HPI. Does endorse orthopnea GASTROINTESTINAL: Denies change in appetite, abdominal pain, nausea and vomiting, or diarrhea GENITOURINARY: Denies hematuria, denies infections. MUSKULOSKELETAL: Denies pain, denies swelling. INTEGUMENTARY: Denies rash, denies eczema. NEUROLOGICAL: Denies recent memory loss, no recent seizure activity. PSYCHIATRIC: Denies anxiety, denies depression. HEMATOLOGIC/LYMPHATIC: Denies anemia, denies enlarged lymph node Past Medical History Past Medical History: Eye Disorder, Hyperlipidemia, Hypertension, Skin Disorder, Sleep Apnea/CPAP/BIPAP Additional Past Medical History / Comment(s): see Dr Michel H&P, eczema, BILAT CATARACTS, History of Any Multi-Drug Resistant Organisms: None Reported Past Surgical History: AICD, Heart Catheterization, Pacemaker Additional Past Surgical History / Comment(s): [facility] AICD, eye surgery [place] Past Anesthesia/Blood Transfusion Reactions: No Reported Reaction Type of Cardiac Device: Permanent Pacemaker, AICD Device Placement Date:: 01/23/2013 Past Psychological History: Depression Smoking Status: Former smoker Past Alcohol Use History: None Reported Past Drug Use History: None Reported - Past Family History Daughter(s) Family Medical History: Cancer Medications and Allergies Home Medications Medication Instructions Recorded Confirmed Type Atorvastatin Calcium [Lipitor] 10 mg PO HS 07/17/14 01/26/24 History Sacubitril/Valsartan [Entresto 49 1 each PO BID 05/18/18 01/26/24 History mg-51 mg Tablet] Spironolactone [Aldactone] 50 mg PO 1900 09/11/20 01/26/24 History carvediloL [Coreg] 12.5 mg PO BID 09/11/20 01/26/24 History Aspirin EC [Ecotrin Low Dose] 81 mg PO DAILY 12/20/23 01/26/24 History Dapagliflozin Propanediol [Farxiga] 10 mg PO DAILY 12/20/23 01/26/24 History Sacubitril/Valsartan [Entresto 24 1 each PO BID 12/20/23 01/26/24 History mg-26 mg Tablet] Allergies Allergy/AdvReac Type Severity Reaction Status Date / Time No Known Allergies Allergy Verified 01/30/24 22:23 Physical Exam Vitals: Vital Signs Temp Pulse Resp BP Pulse Ox 01/31/24 02:04 71 20 115/70 94 L 01/30/24 23:50 96 01/30/24 23:17 70 18 115/56 96 01/30/24 23:13 74 01/30/24 22:51 74 01/30/24 22:45 71 20 120/53 97 01/30/24 22:23 98.8 F 80 20 127/61 75 L Intake and Output 01/30/24 01/30/24 01/31/24 14:59 22:59 06:59 Other: Weight 104.326 kg GENERAL EXAM: Alert, 63-year-old obese male, sitting up on the stretcher, on 9 L high flow nasal cannula, comfortable in no apparent distress. HEAD: Normocephalic and atraumatic EYES: Normal reaction of pupils, equal size. NOSE: Clear with pink turbinates. THROAT: No erythema or exudates. NECK: No masses, no JVD. CHEST: No chest wall deformity. Left chest implanted device LUNGS: Equal air entry with no crackles, wheeze, rhonchi or dullness. No conversational dyspnea or accessory muscle use.. CVS: S1 and S2 normal with no audible murmur, regular rhythm. No extra heart sounds ABDOMEN: Obese abdomen, active bowel sounds, no hepatosplenomegaly, no guarding or rigidity. SPINE: No scoliosis or deformity SKIN: No rashes CENTRAL NERVOUS SYSTEM: No focal deficits, tone is normal in all 4 extremities. EXTREMITIES: There is 1-2+ bilateral lower extremity edema. No clubbing, or cyanosis. Peripheral pulses are intact. Results - Laboratory Findings CBC and BMP: 01/30/24 22:49 01/30/24 22:49 PT/INR, D-dimer PT 10.7 sec (10.0-12.5) 01/30/24 22:49 INR 1.0 (<1.2) 01/30/24 22:49 D-Dimer 0.81 mg/L FEU (<0.60) H 01/30/24 22:49 Abnormal lab findings: Abnormal Labs 01/30/24 01/30/24 01/30/24 22:49 22:49 22:49 WBC 11.8 H MCHC 30.8 L Neutrophils # 8.6 H D-Dimer 0.81 H Glucose 119 H - Diagnostic Findings Chest x-ray: image reviewed CT scan - chest: image reviewed Assessment and Plan Assessment: Suspect acute systolic CHF exacerbation, chest CTA not showing any evidence of acute pulmonary embolism, moderate emphysematous changes noted with tiny bilateral pleural effusions and associated right-sided atelectasis. NT proBNP only mildly elevated at 557. Worsening bilateral lower extremity edema Suspect AICD discharge Acute hypoxemic respiratory failure, currently on 9 L high flow nasal cannula History of ischemic cardiomyopathy status post AICD/pacemaker implantation Obstructive sleep apnea, with home CPAP use Obesity, with a BMI of 36 kg/m History of hyperlipidemia History of hypertension COPD, stable Remote history of tobacco dependence, quitting over 20 years ago Plan: Patient's medications, labs, imaging reviewed Continue supplemental oxygen, currently on 9 L high flow nasal cannula Agree with continuing Lasix 40 mg twice daily Cardiology also consulted Awaiting report from AICD/pacemaker interrogation Echocardiogram pending for the morning Chest CTA negative for filling defects or acute PE Patient's will bring in his home CPAP device later this morning We will continue to follow I have personally seen and examined the patient, performed the documentation and the assessment and plan as written. Number of minutes spent on the visit:20 Time with Patient: Greater than 30
[2024-01-31] MEDS ORDERED: IPRATROPIUM-ALBUTEROL 3 ML NEB INHALATION PRN (05:26)
[2024-01-31] MEDS: IPRATROPIUM-ALBUTEROL 3 ML NEB INHALATION SCH ×2 (06:37→08:10)
[2024-01-31] MEDS: HEPARIN SODIUM,PORCINE 5,000 UNIT/ML 1 ML VIAL SQ SCH (07:47)
[2024-01-31] MEDS ORDERED: DEXTROSE 50% SYRINGE 50 ML IVP PRN ×2 (08:03)
--- NOTE | 2024-01-31 08:14 | P.HPIM ---
History of Present Illness Patient is a pleasant 63 years old male with past medical history of hypertension, hyperlipidemia, sleep apnea on CPAP, cardiomyopathy and status post AICD and his tower attendant is Dr. Bauer. Patient presents because of worsening shortness of breath over several days, no chest pain, no coughing Patient feels his AICD went off yesterday when he felt it was some flashes in front of his eye, currently stable No GI or signs or symptoms. No fever or chills. No headache dizziness weakness or tingling He denies smoking alcohol or illicit drugs He is not on oxygen at home Currently he is on 9 L oxygen via nasal cannula, he looks comfortable sitting up in bed eating his breakfast No significant tachypnea He has mild leukocytosis 11.8, rest of labs were unremarkable including BMP, liver enzymes, CBC, INR and troponin x 2 D-dimer was elevated 0.8 proBNP is 557 Influenza A and type B, RSV, SARS (coronavirus) are undetected Chest x-ray showing no acute process and bilateral interstitial fibrosis with no acute consolidation. When I reviewed the chest x-ray by myself there is a possibility of right lower lobe infiltrate CTA of the chest is negative for PE, moderate emphysema and possible right lower lobe consolidation Patient currently started on Medrol Dosepak and IV Lasix Review of Systems Review of systems CONSTITUTIONAL: No fever, no malaise, no fatigue. HEENT: No recent visual problems or hearing problems. Denied any sore throat. CARDIOVASCULAR: No orthopnea, PND, no palpitations, no syncope. PULMONARY: no cough, no hemoptysis. GASTROINTESTINAL: No diarrhea, no nausea, no vomiting, no abdominal pain. Normoactive bowel sounds. NEUROLOGICAL: No headaches, no weakness, no numbness. HEMATOLOGICAL: Denies any bleeding or petechiae. GENITOURINARY: Denies any burning micturition, frequency, or urgency. MUSCULOSKELETAL/RHEUMATOLOGICAL: Denies any joint pain, swelling, or any muscle pain. ENDOCRINE: Denies any polyuria or polydipsia. Past Medical History Past Medical History: Eye Disorder, Hyperlipidemia, Hypertension, Skin Disorder, Sleep Apnea/CPAP/BIPAP Additional Past Medical History / Comment(s): see Dr Anand Tipton&M[facility], eczema, BILAT CATARACTS, History of Any Multi-Drug Resistant Organisms: None Reported Past Surgical History: AICD, Heart Catheterization, Pacemaker Additional Past Surgical History / Comment(s): [facility] AICD, eye surgery [facility] Past Anesthesia/Blood Transfusion Reactions: No Reported Reaction Type of Cardiac Device: Permanent Pacemaker, AICD Device Placement Date:: 01/23/2013 Past Psychological History: Depression Smoking Status: Former smoker Past Alcohol Use History: None Reported Past Drug Use History: None Reported - Past Family History Daughter(s) Family Medical History: Cancer Medications and Allergies Home Medications Medication Instructions Recorded Confirmed Type Atorvastatin Calcium [Lipitor] 10 mg PO HS 07/17/14 01/26/24 History Sacubitril/Valsartan [Entresto 49 1 each PO BID 05/18/18 01/26/24 History mg-51 mg Tablet] Spironolactone [Aldactone] 50 mg PO 1900 09/11/20 01/26/24 History carvediloL [Coreg] 12.5 mg PO BID 09/11/20 01/26/24 History Aspirin EC [Ecotrin Low Dose] 81 mg PO DAILY 12/20/23 01/26/24 History Dapagliflozin Propanediol [Farxiga] 10 mg PO DAILY 12/20/23 01/26/24 History Sacubitril/Valsartan [Entresto 24 1 each PO BID 12/20/23 01/26/24 History mg-26 mg Tablet] Allergies Allergy/AdvReac Type Severity Reaction Status Date / Time No Known Allergies Allergy Verified 01/30/24 22:23 Physical Exam Vitals: Vital Signs Temp Pulse Resp BP Pulse Ox 01/31/24 07:50 78 18 116/64 95 01/31/24 06:02 98.1 F 68 19 116/50 94 L 01/31/24 02:04 71 20 115/70 94 L 01/30/24 23:50 96 01/30/24 23:17 70 18 115/56 96 01/30/24 23:13 74 01/30/24 22:51 74 01/30/24 22:45 71 20 120/53 97 01/30/24 22:23 98.8 F 80 20 127/61 75 L Intake and Output 01/30/24 01/31/24 01/31/24 22:59 06:59 14:59 Other: Weight 104.326 kg GENERAL: The patient is alert and oriented x3, not in any acute distress. Well developed, well nourished. HEENT: Pupils are round and equally reacting to light. EOMI. No scleral icterus. No conjunctival pallor. Normocephalic, atraumatic. No pharyngeal erythema. No thyromegaly. CARDIOVASCULAR: S1 and S2 present. No murmurs, rubs, or gallops. -PULMONARY: Chest is clear to auscultation, no wheezing , no crackles. Decreased air entry on both sides ABDOMEN: Soft, nontender, nondistended, normoactive bowel sounds. No palpable organomegaly. MUSCULOSKELETAL: No joint swelling or deformity. -EXTREMITIES: No cyanosis, clubbing, .2+ bilateral pitting leg edema. NEUROLOGICAL: Gross neurological examination did not reveal any focal deficits. SKIN: No rashes. no petechiae. Results CBC & Chem 7: 01/30/24 22:49 01/30/24 22:49 Labs: Abnormal Lab Results - Last 24 Hours (Table) 01/30/24 01/30/24 01/30/24 Range/Units 22:49 22:49 22:49 WBC 11.8 H (3.8-10.6) k/uL MCHC 30.8 L (31.0-37.0) g/dL Neutrophils # 8.6 H (1.3-7.7) k/uL D-Dimer 0.81 H (<0.60) mg/L FEU Glucose 119 H (74-99) mg/dL Assessment and Plan Assessment: Acute hypoxic respiratory failure Cardiomyopathy status post AICD, need AICD interrogation Acute on chronic CHF, unknown ejection fraction, probably reduced EF Possible reactive airway and bronchitis on steroids Obstructive sleep apnea Hypertension Hyperlipidemia Obesity with BMI of 36 Right lower lobe consolidation versus atelectasis Plan: Continue with Medrol Dosepak Continue with IV Lasix Monitor creatinine and electrolytes Pulmonary team already evaluated the patient Consult tower attendant Dr. Gomez for AICD firing and CHF Resume home medication Further recommendation based on the clinical course GI prophylaxis Pepcid DVT prophylaxis heparin Prognosis is guarded
[2024-01-31] MEDS: FUROSEMIDE 10 MG/ML 4 ML VIAL IV SCH (08:24)
[2024-01-31] MEDS: FAMOTIDINE 20 MG/2 ML VIAL IV SCH (08:24)
[2024-01-31] MEDS: methylPREDNISolone 4 MG TAB TAPER PO SCH (08:29)
[2024-01-31] MEDS ORDERED: methylPREDNISolone SOD SUCCI 40 MG/ML 1 ML VIAL IV SCH (09:00)
[2024-01-31 11:43] LABS: Glucose,Whole Blood 270 mg/dL (70-110)
[2024-01-31] MEDS: INSULIN ASPART (NovoLOG) 100 UNIT/ML VIAL SQ SCH (12:45)
[2024-01-31] MEDS: prednisoLONE ACETATE 1% OPHTH DROPS 5 ML BTL RIGHT EYE SCH (13:15)
[2024-01-31] MEDS: KETOROLAC 0.5% OPHTH DROPS 5 ML BTL RIGHT EYE SCH (13:15)
--- NOTE | 2024-01-31 14:39 | P.CRDCN ---
History of Present Illness Consult date: 01/31/24 Consult reason: chest pain, other (AICD shock) History of present illness: History of present illness: Patient is a pleasant 63-year-old male with significant past medical history of hypertension, hyperlipidemia, sleep apnea on CPAP, cardiomyopathy, status post AICD placement from 26 years ago who presents with worsening shortness of breath, chest heaviness, and AICD shock. He does follow with Dr. Michel in the office. He denies any significant family history of heart disease. He does not smoke. He reports that he has not been feeling well for the past week or so and has been having chest heaviness when he is walking. His leg swelling has gotten worse over the past couple weeks. He does state he was started on Farxiga approximately 6 weeks ago and his Lasix was stopped at that time. He does have some intermittent dizziness. Yesterday he was walking back to the bedroom from the bathroom when he felt weird began sweating for 1 to 2 minutes and then felt his AICD shocked him. He has never had a prior shock before. He did have a normal heart catheterization in 2004. He believes his last stress test was approximately 1-2 years ago. REVIEW OF SYSTEMS: No fever or chills. No cough or expectoration. No diaphoresis. Patient denies headache, blurred vision, double vision. Patient denies any stomach discomfort. No nausea, vomiting. No hematochezia. No hematemesis. Denies any black stools or blood in his stools. Denies dysuria or hematuria. No muscle weakness or numbness. He reports chest heaviness, leg swelling, dizziness. PHYSICAL EXAMINATION: This is a 63-year-old male in no apparent distress at the time of my examination. HEENT: Head is atraumatic, normocephalic. Pupils are equal, round. Sclerae anicteric. Conjunctivae are clear. Mucous membranes of the mouth are moist. Neck is supple. There is no jugular venous distention. No carotid bruit is heard. CHEST EXAMINATION: Lungs are clear to auscultation. No chest wall tenderness is noted on palpation or with deep breathing. HEART EXAMINATION: Heart regular rate and rhythm. S1, S2 heard. No murmurs, gallops or rub. ABDOMEN: Soft, nontender. Bowel sounds are heard. EXTREMITIES: 2+ peripheral pulses, with +2 peripheral edema and no calf tenderness noted. NEUROLOGIC EXAMINATION: Patient is awake, alert and oriented x3. IMPRESSION AND PLAN: Cardiomyopathy, status post AICD Hypertension Hyperlipidemia Sleep apnea on CPAP Chest heaviness Shortness of breath Inappropriate AICD shock PLAN: Device interrogation was reviewed and shows inappropriate shock related to oversensing of the RV. Recommend EP eval for possible new wire/adjustment of the AICD. Continue with IV diuretics. We will check Lexiscan stress test to rule out inducible ischemia. Further admit recommendations pending clinical course. I am dictating on behalf of Dr. Fredo Barton's history/physical and assessment/plan. Past Medical History Past Medical History: Eye Disorder, Hyperlipidemia, Hypertension, Skin Disorder, Sleep Apnea/CPAP/BIPAP Additional Past Medical History / Comment(s): see Dr Michel H&P, eczema, BILAT CATARACTS, History of Any Multi-Drug Resistant Organisms: None Reported Past Surgical History: AICD, Heart Catheterization, Pacemaker Additional Past Surgical History / Comment(s): [facility] AICD, eye surgery [place] Past Anesthesia/Blood Transfusion Reactions: No Reported Reaction Type of Cardiac Device: Permanent Pacemaker, AICD Device Placement Date:: 01/23/2013 Past Psychological History: Depression Smoking Status: Former smoker Past Alcohol Use History: None Reported Past Drug Use History: None Reported - Past Family History Daughter(s) Family Medical History: Cancer Medications and Allergies Home Medications Medication Instructions Recorded Confirmed Type Sacubitril/Valsartan [Entresto 49 1 tab PO BID 05/18/18 01/31/24 History mg-51 mg Tablet] Spironolactone [Aldactone] 50 mg PO DAILY 09/11/20 01/31/24 History carvediloL [Coreg] 12.5 mg PO BID 09/11/20 01/31/24 History Aspirin EC [Ecotrin Low Dose] 81 mg PO DAILY 12/20/23 01/31/24 History Dapagliflozin Propanediol [Farxiga] 10 mg PO DAILY 12/20/23 01/31/24 History Sacubitril/Valsartan [Entresto 24 1 tab PO BID 12/20/23 01/31/24 History mg-26 mg Tablet] Atorvastatin [Lipitor] 20 mg PO DAILY 01/31/24 01/31/24 History Ketorolac 0.5% Ophth Soln [Acular 1 drop LEFT EYE BID 01/31/24 01/31/24 History 0.5%] Ketorolac 0.5% Ophth Soln [Acular 1 drop RIGHT EYE QID 01/31/24 01/31/24 History 0.5%] Moxifloxacin HCl [Moxifloxacin 1 drop RIGHT EYE BID 01/31/24 01/31/24 History 0.5%] prednisoLONE ACETATE 1% OPHTH 1 drop LEFT EYE BID 01/31/24 01/31/24 History [Pred Forte 1%] prednisoLONE ACETATE 1% OPHTH 1 drop RIGHT EYE QID 01/31/24 01/31/24 History [Pred Forte 1%] Allergies Allergy/AdvReac Type Severity Reaction Status Date / Time No Known Allergies Allergy Verified 01/31/24 09:48 Physical Exam Vitals: Vital Signs Temp Pulse Resp BP Pulse Ox 01/31/24 14:01 81 16 117/49 93 L 01/31/24 13:15 83 17 129/68 95 01/31/24 13:01 88 01/31/24 12:53 81 01/31/24 11:44 75 16 121/60 95 01/31/24 10:35 125/69 01/31/24 09:00 87 18 124/60 95 01/31/24 08:19 82 01/31/24 08:13 81 01/31/24 07:50 78 18 116/64 95 01/31/24 06:02 98.1 F 68 19 116/50 94 L 01/31/24 02:04 71 20 115/70 94 L 01/30/24 23:50 96 01/30/24 23:17 70 18 115/56 96 01/30/24 23:13 74 01/30/24 22:51 74 01/30/24 22:45 71 20 120/53 97 01/30/24 22:23 98.8 F 80 20 127/61 75 L Intake and Output 01/30/24 01/31/24 01/31/24 22:59 06:59 14:59 Other: Weight 104.326 kg Results 01/30/24 22:49 01/30/24 22:49 Cardiac Enzymes 01/30/24 01/30/24 01/31/24 Range/Units 22:49 22:49 03:46 AST 34 (17-59) U/L Troponin I <0.012 <0.012 (0.000-0.034) ng/mL 01/31/24 Range/Units 08:47 AST (17-59) U/L Troponin I <0.012 (0.000-0.034) ng/mL Coagulation 01/30/24 Range/Units 22:49 PT 10.7 (10.0-12.5) sec APTT 23.8 (22.0-30.0) sec CBC 01/30/24 Range/Units 22:49 WBC 11.8 H (3.8-10.6) k/uL RBC 5.23 (4.30-5.90) m/uL Hgb 15.2 (13.0-17.5) gm/dL Hct 49.2 (39.0-53.0) % Plt Count 229 (150-450) k/uL Comprehensive Metabolic Panel 01/30/24 Range/Units 22:49 Sodium 138 (137-145) mmol/L Potassium 4.7 (3.5-5.1) mmol/L Chloride 104 (98-107) mmol/L Carbon Dioxide 29 (22-30) mmol/L BUN 15 (9-20) mg/dL Creatinine 0.73 (0.66-1.25) mg/dL Glucose 119 H (74-99) mg/dL Calcium 8.7 (8.4-10.2) mg/dL AST 34 (17-59) U/L ALT 12 (4-49) U/L Alkaline Phosphatase 107 (38-126) U/L Total Protein 7.1 (6.3-8.2) g/dL Albumin 4.0 (3.5-5.0) g/dL Current Medications Generic Name Dose Route Start Last Admin Trade Name Freq PRN Reason Stop Dose Admin Albuterol/Ipratropium 3 ml 01/31/24 08:00 01/31/24 12:51 Ipratropium-Albuterol 3 Ml Neb INHALATION 3 ml RT-QID MARIA R Administration Albuterol/Ipratropium 3 ml 01/31/24 05:26 Ipratropium-Albuterol 3 Ml Neb INHALATION RT-Q2H PRN Shortness Of Breath Or Wheezing Aspirin 81 mg 02/01/24 09:00 Aspirin 81 Mg PO DAILY [facility] Atorvastatin Calcium 20 mg 02/01/24 09:00 Atorvastatin 20 Mg Tab PO DAILY [facility] Carvedilol 12.5 mg 01/31/24 17:30 Carvedilol 12.5 Mg Tab PO AC-BID [facility] Dapagliflozin 10 mg 02/01/24 09:00 Dapagliflozin Propanediol 10 Mg Tablet PO DAILY [facility] Dextrose/Water 25 ml 01/31/24 08:03 Dextrose 50% Syringe 50 Ml IVP PER PROTOCOL PRN Hypoglycemia Protocol Dextrose/Water 50 ml 01/31/24 08:03 Dextrose 50% Syringe 50 Ml IVP PER PROTOCOL PRN Hypoglycemia Protocol Famotidine 20 mg 01/31/24 09:00 01/31/24 08:24 Famotidine 20 Mg/2 Ml Vial IV 20 mg Q12HR MARIA R Administration Furosemide 40 mg 01/31/24 09:00 01/31/24 08:24 Furosemide 10 Mg/Ml 4 Ml Vial IV 40 mg Q12HR MARIA R Administration Heparin Sodium (Porcine) 5,000 unit 01/31/24 08:00 01/31/24 07:47 Heparin Sodium,Porcine 5,000 Unit/Ml 1 Ml Vial SQ 5,000 unit Q8HR MARIA R Administration Insulin Aspart 0 unit 01/31/24 12:30 01/31/24 12:45 Insulin Aspart (Novolog) 100 Unit/Ml Vial SQ 3 unit ACHS [facility] Administration Protocol Ketorolac Tromethamine 1 drops 01/31/24 21:00 Ketorolac 0.5% Ophth Drops 5 Ml Btl LEFT EYE BID [facility] Ketorolac Tromethamine 1 drops 01/31/24 13:00 01/31/24 13:15 Ketorolac 0.5% Ophth Drops 5 Ml Btl RIGHT EYE 1 drops QID [facility] Administration Methylprednisolone 24 mg 01/31/24 09:00 01/31/24 08:29 Methylprednisolone 4 Mg Tab Taper PO 02/06/24 08:59 24 mg DAILY [facility] Administration Taper Moxifloxacin HCl 1 drops 01/31/24 21:00 Moxifloxacin Hcl 0.5% Drops 3 Ml Btl RIGHT EYE BID [facility] Naloxone HCl 0.2 mg 01/31/24 01:23 Naloxone 0.4 Mg/Ml 1 Ml Vial IV Q2M PRN Opioid Reversal Ondansetron HCl 4 mg 01/31/24 01:23 Ondansetron 4 Mg/2 Ml Vial IVP Q8HR PRN Nausea And Vomiting Prednisolone Acetate 1 drops 01/31/24 21:00 Prednisolone Acetate 1% Ophth Drops 5 Ml Btl LEFT EYE BID MARIA R Prednisolone Acetate 1 drops 01/31/24 13:00 01/31/24 13:15 Prednisolone Acetate 1% Ophth Drops 5 Ml Btl RIGHT EYE 1 drops QID MARIA R Administration Sacubitril/Valsartan 1 each 01/31/24 21:00 Sacubitril/Valsartan 49 Mg-51 Mg Tablet PO BID [facility] Spironolactone 50 mg 02/01/24 09:00 Spironolactone 25 Mg Tab PO DAILY [facility] Intake and Output 01/30/24 01/31/24 01/31/24 22:59 06:59 14:59 Other: Weight 104.326 kg 01/30/24 22:49 01/30/24 22:49
[2024-01-31] MEDS: carvediloL 12.5 MG TAB PO SCH (16:45)
[2024-01-31 17:03] LABS: Glucose,Whole Blood 256 mg/dL (70-110)
[2024-01-31 20:19] LABS: Glucose,Whole Blood 231 mg/dL (70-110)
[2024-01-31] MEDS: prednisoLONE ACETATE 1% OPHTH DROPS 5 ML BTL LEFT EYE SCH (21:14)
[2024-01-31] MEDS: KETOROLAC 0.5% OPHTH DROPS 5 ML BTL LEFT EYE SCH (21:14)
[2024-01-31] MEDS: MOXIFLOXACIN HCL 0.5% DROPS 3 ML BTL RIGHT EYE SCH (21:15)
[2024-01-31] MEDS: SACUBITRIL/VALSARTAN 49 MG-51 MG TABLET PO SCH (22:45)
[2024-02-01] MEDS ORDERED: REGADENOSON 0.4 MG/5 ML SYRINGE IV PRN (06:00)
[2024-02-01] MEDS ORDERED: CAFFEINE CITRATE 60 MG/3 ML VIAL IV PRN (06:00)
[2024-02-01] MEDS ORDERED: AMINOPHYLLINE 500 MG/20 ML VIAL IV PRN (06:00)
[2024-02-01 07:32] LABS: Glucose,Whole Blood 91 mg/dL (70-110)
[2024-02-01 07:38] LABS: ALT 12 U/L (4-49); AST 20 U/L (17-59); African American GFR (CKD) >90 (>60 ml/min/1.73 sqM); Albumin 3.9 g/dL (3.5-5.0); Alkaline Phosphatase 77 U/L (38-126); Anion Gap 1 mmol/L; Blood Urea Nitrogen 24 mg/dL (9-20); Calcium 8.4 mg/dL (8.4-10.2); Carbon Dioxide 39 mmol/L (22-30); Chloride 101 mmol/L (98-107); Glucose 110 mg/dL (74-99); Non-African American GFR(CKD) >90 (>60 ml/min/1.73 sqM); Potassium 4.7 mmol/L (3.5-5.1); Sodium 141 mmol/L (137-145); Total Bilirubin 0.4 mg/dL (0.2-1.3); Total Protein 6.9 g/dL (6.3-8.2)
[2024-02-01 07:39] LABS: Basophils % (A) 0 %; Eosinophils # (A) 0.1 k/uL (0-0.7); Eosinophils % (A) 0 %; HCT 50.9 % (39.0-53.0); HGB 14.7 gm/dL (13.0-17.5); Hypochromasia Marked; Lymphocytes # (A) 1.2 k/uL (1.0-4.8); Lymphocytes % (A) 7 %; MCHC 28.9 g/dL (31.0-37.0); Mean Platelet Volume 8.2; Monocytes # (A) 1.6 k/uL (0-1.0); Monocytes % (A) 10 %; Neutrophils # (A) 13.1 k/uL (1.3-7.7); Neutrophils % (A) 81 %; Platelet Count 224 k/uL (150-450); RBC 5.25 m/uL (4.30-5.90); RDW 14.4 % (11.5-15.5); WBC 16.3 k/uL (3.8-10.6)
[2024-02-01 07:44] LABS: NT-Pro-B-Type Natriuretic Pept 288 pg/mL
--- NOTE | 2024-02-01 08:53 | P.PN ---
Subjective Progress Note Date: 02/01/24 This is a 63-year-old male who originally presented to the emergency department AICD went off. Patient also reports increasing shortness of breath over the last several days. Patient does not have home oxygen. He is currently on 5 L of oxygen via nasal cannula and oxygen saturation is 94%. He has been seen and evaluated by cardiology and neurology. Cardiology is planning for a EP evaluation and Lexiscan stress test. Objective - Vital Signs Vital signs: Vital Signs Temp 97.7 F 02/01/24 00:33 Pulse 75 02/01/24 07:58 Resp 18 02/01/24 06:13 BP 106/62 02/01/24 06:13 Pulse Ox 96 02/01/24 06:13 FiO2 Intake & Output 01/31/24 02/01/24 02/01/24 18:59 06:59 18:59 Output Total 1200 Balance -1200 Output: Urine 1200 - Constitutional General appearance: Present: cooperative, no acute distress - EENT Eyes: Present: PERRLA - Neck Neck: Present: normal ROM. Absent: lymphadenopathy, rigidity - Respiratory Respiratory: bilateral: diminished - Cardiovascular Rhythm: regular Heart sounds: normal: S1, S2 - Gastrointestinal General gastrointestinal: Present: soft. Absent: tenderness - Integumentary Integumentary: Present: normal, normal turgor - Musculoskeletal Musculoskeletal: Present: generalized weakness - Psychiatric Psychiatric: Present: A&O x's 3, appropriate affect, intact judgment & insight - Labs CBC & Chem 7: 02/01/24 07:10 02/01/24 07:10 Labs: Abnormal Lab Results - Last 24 Hours (Table) 01/31/24 01/31/24 01/31/24 Range/Units 11:42 17:02 20:18 WBC (3.8-10.6) k/uL MCHC (31.0-37.0) g/dL Neutrophils # (1.3-7.7) k/uL Monocytes # (0-1.0) k/uL Carbon Dioxide (22-30) mmol/L BUN (9-20) mg/dL Glucose (74-99) mg/dL POC Glucose (mg/dL) 270 H 256 H 231 H (70-110) mg/dL 02/01/24 02/01/24 Range/Units 07:10 07:10 WBC 16.3 H (3.8-10.6) k/uL MCHC 28.9 L (31.0-37.0) g/dL Neutrophils # 13.1 H (1.3-7.7) k/uL Monocytes # 1.6 H (0-1.0) k/uL Carbon Dioxide 39 H (22-30) mmol/L BUN 24 H (9-20) mg/dL Glucose 110 H (74-99) mg/dL POC Glucose (mg/dL) (70-110) mg/dL Assessment and Plan (1) Defibrillator discharge Current Visit: Yes Status: Acute Code(s): Z45.02 - ENCNTR FOR ADJUST AND MGMT OF AUTOMATIC IMPLNTBL CARD DEFIB SNOMED Code(s): 344014920 (2) Hypertension Current Visit: Yes Status: Acute Code(s): I10 - ESSENTIAL (PRIMARY) HYPERTENSION SNOMED Code(s): 52809501 (3) CHF (congestive heart failure) Current Visit: Yes Status: Acute Code(s): I50.9 - HEART FAILURE, UNSPECIFIED SNOMED Code(s): 17969319 (4) Hypoxic respiratory failure Current Visit: Yes Status: Acute Code(s): J96.91 - RESPIRATORY FAILURE, UNSPECIFIED WITH HYPOXIA SNOMED Code(s): 78697430722589440 Plan: Appreciate cardiology and pulmonology input. Await further testing. Check CBC and CMP in the morning. Patient seen and evaluated by nurse practitioner, physician in agreement with yanelis de paz
[2024-02-01] MEDS: ATORVASTATIN 20 MG TAB PO SCH (08:57)
[2024-02-01] MEDS: ASPIRIN 81 MG PO SCH (08:57)
[2024-02-01] MEDS: SPIRONOLACTONE 25 MG TAB PO SCH (09:00)
[2024-02-01] MEDS: DAPAGLIFLOZIN PROPANEDIOL 10 MG TABLET PO SCH (09:00)
--- NOTE | 2024-02-01 12:07 | P.PN ---
Subjective HISTORY OF PRESENT ILLNESS: Patient is a pleasant 63-year-old male with significant past medical history of hypertension, hyperlipidemia, sleep apnea on CPAP, cardiomyopathy, status post AICD placement from 26 years ago who presents with worsening shortness of breath, chest heaviness, and AICD shock. He does follow with Dr. Michel in the office. He denies any significant family history of heart disease. He does not smoke. He reports that he has not been feeling well for the past week or so and has been having chest heaviness when he is walking. His leg swelling has gotten worse over the past couple weeks. He does state he was started on Farxiga approximately 6 weeks ago and his Lasix was stopped at that time. He does have some intermittent dizziness. Yesterday he was walking back to the bedroom from the bathroom when he felt weird began sweating for 1 to 2 minutes and then felt his AICD shocked him. He has never had a prior shock before. He did have a normal heart catheterization in 2004. He believes his last stress test was approximately 1-2 years ago. 02/01/2024 Patient examined this morning at the bedside. Patient does report mild shortness of breath this morning. He denies any chest pain or pressure. Vital signs are stable. Echocardiogram performed in July 2023 at the office revealed ejection fraction 40%, global LV hypokinesis, mildly dilated left atrium, mild mitral regurgitation, mild tricuspid regurgitation PHYSICAL EXAM: VITAL SIGNS: Reviewed. GENERAL: Well-developed in no acute distress. NECK: Supple. No JVD or thyromegaly LUNGS: Respirations even and unlabored. Lungs with decreased air exchange HEART: Regular rate and rhythm. S1 and S2 heard. EXTREMITIES: Normal range of motion. No clubbing or cyanosis. Peripheral pulses intact. No lower extremity edema ASSESSMENT: Inappropriate AICD shock Acute on chronic heart failure with reduced EF, 40% COPD exacerbation Cardiomyopathy, status post AICD Hypertension Hyperlipidemia PLAN: Lexiscan cancelled as this is not indicated Continue IV lasix 40 mg every 12 hours Daily weights, accurate intake and output, monitoring of kidney function Pulmonary to manage COPD exacerbation Patients ICD functions will be disabled per device rep this morning. Magnet currently applied over device. Patient has a fractured ICD lead that needs to be replaced. However, Dr. Michel does not want to proceed with this until patient's pulmonary status has improved Will likely discharge home patient with [employer] and replace ICD lead on an outpatient basis Further recommendations pending patient course Nurse practitioner note has been reviewed by physician. Signing provider agrees with the documented findings, assessment, and plan of care documented by DIRECTOR OF COLLECTIONS AND ARCHIVES as a scribe. Objective - Vital Signs Vital signs: Vital Signs Temp 97.7 F 02/01/24 00:33 Pulse 71 02/01/24 11:12 Resp 22 02/01/24 10:00 BP 115/54 02/01/24 10:00 Pulse Ox 91 L 02/01/24 10:00 FiO2 Intake & Output 01/31/24 02/01/24 02/01/24 18:59 06:59 18:59 Output Total 1200 Balance -1200 Output: Urine 1200 - Labs CBC & Chem 7: 02/01/24 07:10 02/01/24 07:10 Labs: Abnormal Lab Results - Last 24 Hours (Table) 01/31/24 01/31/24 02/01/24 Range/Units 17:02 20:18 07:10 WBC 16.3 H (3.8-10.6) k/uL MCHC 28.9 L (31.0-37.0) g/dL Neutrophils # 13.1 H (1.3-7.7) k/uL Monocytes # 1.6 H (0-1.0) k/uL Carbon Dioxide (22-30) mmol/L BUN (9-20) mg/dL Glucose (74-99) mg/dL POC Glucose (mg/dL) 256 H 231 H (70-110) mg/dL 02/01/24 Range/Units 07:10 WBC (3.8-10.6) k/uL MCHC (31.0-37.0) g/dL Neutrophils # (1.3-7.7) k/uL Monocytes # (0-1.0) k/uL Carbon Dioxide 39 H (22-30) mmol/L BUN 24 H (9-20) mg/dL Glucose 110 H (74-99) mg/dL POC Glucose (mg/dL) (70-110) mg/dL
[2024-02-01 12:10] LABS: Glucose,Whole Blood 126 mg/dL (70-110)
--- NOTE | 2024-02-01 14:38 | P.PN ---
Subjective Progress Note Date: 02/01/24 Patient is a 63-year-old male with past medical history significant for obstructive sleep apnea with home CPAP, ischemic cardiomyopathy, AICD, hyperlipidemia, hypertension, obesity, and former tobacco smoker. Also, believes someone told him he has emphysema. Remote history of tobacco use over 20 years ago. Not currently on any inhalers or nebulized treatments at home. Patient was taken off Lasix approximately 2 months ago. Over this timeframe, he has noticed increased lower extremity swelling and abdominal fullness. He has been progressively more short of breath and fatigued. Last night, he was getting water for his CPAP machine. Became "winded", and felt a thump in his chest. His vision flashed. Never reportedly lost consciousness. Believes his defibrillator fired, which would be the first occurrence. He now has some vague chest discomfort/heaviness. Denies associated palpitations, nausea/vomiting. He called his edge cutter office, who recommended he come to the emergency de partment to be evaluated. He was noted to be hypoxic. Originally, placed on a nonrebreather. CTA of the chest did not show any evidence for acute pulmonary embolism. There is moderate emphysematous changes with tiny bilateral pleural effusions and associated atelectasis. NT proBNP only 557. Initial troponin < 0.012. EKG showing ventricularly paced rhythm. Patient is being evaluated in the emergency department. Currently on 9 L high flow nasal cannula. SpO2 is 96%. Blood pressure normotensive. Rhythm appears ventricularly paced on bedside monitor. Afebrile. CBC: WBC count 11.8, hemoglobin 15.2, hematocrit 49.2, platelets 229. BMP is unremarkable. Negative for influenza, RSV, COVID. He has been started on Lasix 40 mg twice daily. Has already diuresed 750 mL of urine. Patient's AICD/pacemaker has not been interrogated, awaiting report. No further cardiac events while in the emergency department. On today's evaluation of 02/01/2024, the patient is being seen for a follow-up. Slightly improved compared to yesterday and the patient is feeling less short of breath. The patient is being diuresed with IV Lasix. The patient is currently on Lasix 40 mg IV every 12 hours and the patient has been in negative fluid balance. He is also on bronchodilators, and there is and the patient is currently on IV Solu-Medrol. CHF is being further optimized. Noted the patient was taken off the diuretics prior to his hospital admission by around 2 weeks. Currently, he is on Entresto, Coreg, Farxiga and IV Lasix. Aldactone is also on board. White circles of 16.3 with hemoglobin 14.7 and a platelet count of 224. BUN is 24 with a creatinine of 0.8 and a sodium levels of 141. The CT of the chest was done time of admission showed no evidence of any pulmonary embolism. The patient has background COPD with upper lobe predominance and a small right- sided pleural effusion and mild pulm vessel congestion. No evidence of any pulmonary embolism. Objective - Vital Signs Vital signs: Vital Signs Temp 97.7 F 02/01/24 00:33 Pulse 71 02/01/24 11:12 Resp 22 02/01/24 10:00 BP 115/54 02/01/24 10:00 Pulse Ox 91 L 02/01/24 10:00 FiO2 Intake & Output 01/31/24 02/01/24 02/01/24 18:59 06:59 18:59 Output Total 1200 Balance -1200 Output: Urine 1200 - Exam GENERAL EXAM: Alert, 63-year-old obese male, sitting up on the stretcher, on 9 L high flow nasal cannula, comfortable in no apparent distress. HEAD: Normocephalic and atraumatic EYES: Normal reaction of pupils, equal size. NOSE: Clear with pink turbinates. THROAT: No erythema or exudates. NECK: No masses, no JVD. CHEST: No chest wall deformity. Left chest implanted device LUNGS: Equal air entry with no crackles, wheeze, rhonchi or dullness. No conversational dyspnea or accessory muscle use.. CVS: S1 and S2 normal with no audible murmur, regular rhythm. No extra heart sounds ABDOMEN: Obese abdomen, active bowel sounds, no hepatosplenomegaly, no guarding or rigidity. SPINE: No scoliosis or deformity SKIN: No rashes CENTRAL NERVOUS SYSTEM: No focal deficits, tone is normal in all 4 extremities. EXTREMITIES: There is 1-2+ bilateral lower extremity edema. No clubbing, or cyanosis. Peripheral pulses are intact. - Labs CBC & Chem 7: 02/01/24 07:10 02/01/24 07:10 Labs: Abnormal Lab Results - Last 24 Hours (Table) 01/31/24 01/31/24 02/01/24 Range/Units 17:02 20:18 07:10 WBC 16.3 H (3.8-10.6) k/uL MCHC 28.9 L (31.0-37.0) g/dL Neutrophils # 13.1 H (1.3-7.7) k/uL Monocytes # 1.6 H (0-1.0) k/uL Carbon Dioxide (22-30) mmol/L BUN (9-20) mg/dL Glucose (74-99) mg/dL POC Glucose (mg/dL) 256 H 231 H (70-110) mg/dL 02/01/24 Range/Units 07:10 WBC (3.8-10.6) k/uL MCHC (31.0-37.0) g/dL Neutrophils # (1.3-7.7) k/uL Monocytes # (0-1.0) k/uL Carbon Dioxide 39 H (22-30) mmol/L BUN 24 H (9-20) mg/dL Glucose 110 H (74-99) mg/dL POC Glucose (mg/dL) (70-110) mg/dL Assessment and Plan Plan: Acute hypoxic respiratory failure, the patient was a 9 L of oxygen by nasal cannula and currently is down to 5 L. Suspect acute systolic CHF exacerbation, chest CTA not showing any evidence of acute pulmonary embolism, moderate emphysematous changes noted with tiny bilateral pleural effusions and associated right-sided atelectasis. NT proBNP only mildly elevated at 557. Worsening bilateral lower extremity edema, and the patient has been off diuretics on outpatient basis Suspect AICD discharge Acute hypoxemic respiratory failure, currently on 9 L high flow nasal cannula, improving and the patient is currently on 5 L History of ischemic cardiomyopathy status post AICD/pacemaker implantation Obstructive sleep apnea, with home CPAP use Obesity, with a BMI of 36 kg/m History of hyperlipidemia History of hypertension COPD, stable Remote history of tobacco dependence, quitting over 20 years ago Plan: Patient's medications, labs, imaging reviewed, clinically improving and the patient remains in the emergency Continue supplemental oxygen, currently on 5 L and will further wean down FiO2 as tolerated. Agree with continuing Lasix 40 mg twice daily, diuresing well and this will be continued for another 24 hours Cardiology also consulted AICD/pacemaker interrogation was performed Echocardiogram pending Chest CTA negative for filling defects or acute PE Patient's will bring in his home CPAP device later this morning We will continue to follow
[2024-02-01 16:48] LABS: Glucose,Whole Blood 254 mg/dL (70-110)
[2024-02-01 21:13] LABS: Glucose,Whole Blood 147 mg/dL (70-110)
[2024-02-02 06:13] LABS: Glucose,Whole Blood 164 mg/dL (70-110)
[2024-02-02 06:43] LABS: HGB 15.3 gm/dL (13.0-17.5); Hypochromasia Marked; MCH 29.4 pg (25.0-35.0); MCHC 30.7 g/dL (31.0-37.0); MCV 95.8 fL (80.0-100.0); Mean Platelet Volume 8.5; Platelet Count 230 k/uL (150-450); RBC 5.21 m/uL (4.30-5.90); RDW 14.7 % (11.5-15.5); WBC 14.5 k/uL (3.8-10.6)
[2024-02-02 06:53] LABS: ALT 14 U/L (4-49); AST 21 U/L (17-59); African American GFR (CKD) >90 (>60 ml/min/1.73 sqM); Albumin 3.9 g/dL (3.5-5.0); Alkaline Phosphatase 80 U/L (38-126); Blood Urea Nitrogen 28 mg/dL (9-20); Calcium 8.8 mg/dL (8.4-10.2); Chloride 97 mmol/L (98-107); Glucose 103 mg/dL (74-99); Non-African American GFR(CKD) >90 (>60 ml/min/1.73 sqM); Potassium 3.9 mmol/L (3.5-5.1); Sodium 142 mmol/L (137-145); Total Bilirubin 0.6 mg/dL (0.2-1.3); Total Protein 6.9 g/dL (6.3-8.2)
[2024-02-02 07:02] LABS: Anion Gap 6 mmol/L
[2024-02-02 07:10] LABS: Carbon Dioxide 39 mmol/L (22-30)
[2024-02-02] MEDS: FUROSEMIDE 40 MG TAB PO SCH (08:30)
--- NOTE | 2024-02-02 08:37 | P.PN ---
Subjective Principal diagnosis: Acute respiratory failure. Patient is a 63-year-old white male who his respiratory status has improved since yesterday. Decreased oxygen requirement and he is sitting up comfortably compared to yesterday. No voiding difficulties. Appreciate multiple consultants input. Question element of acute systolic congestive heart failure. Element of AICD shock. No voiding difficulty Objective - Vital Signs Vital signs: Vital Signs Temp 98.4 F 02/02/24 07:35 Pulse 75 02/02/24 07:35 Resp 22 02/02/24 07:35 BP 123/69 02/02/24 07:35 Pulse Ox 90 L 02/02/24 07:36 FiO2 Intake & Output 02/01/24 02/02/24 02/02/24 18:59 06:59 18:59 Intake Total 720 Output Total 1250 Balance -530 Weight 104.326 kg Intake: Oral 720 Output: Urine 1250 Other: Voiding Method External Catheter # Voids 2 - Constitutional General appearance: Present: average body habitus, no acute distress - EENT Eyes: Absent: abnormal pupil - Neck Neck: Absent: lymphadenopathy - Respiratory Respiratory: bilateral: diminished - Cardiovascular Rhythm: regular Heart sounds: normal: S1, S2 Abnormal Heart Sounds: Absent: S3 Gallop - Gastrointestinal General gastrointestinal: Present: soft. Absent: tenderness - Labs CBC & Chem 7: 02/02/24 06:08 02/02/24 06:08 Labs: Abnormal Lab Results - Last 24 Hours (Table) 02/01/24 02/01/24 02/01/24 Range/Units 12:09 16:47 21:12 WBC (3.8-10.6) k/uL MCHC (31.0-37.0) g/dL Chloride (98-107) mmol/L Carbon Dioxide (22-30) mmol/L BUN (9-20) mg/dL Glucose (74-99) mg/dL POC Glucose (mg/dL) 126 H 254 H 147 H (70-110) mg/dL 02/02/24 02/02/24 02/02/24 Range/Units 06:08 06:08 06:12 WBC 14.5 H (3.8-10.6) k/uL MCHC 30.7 L (31.0-37.0) g/dL Chloride 97 L (98-107) mmol/L Carbon Dioxide 39 H (22-30) mmol/L BUN 28 H (9-20) mg/dL Glucose 103 H (74-99) mg/dL POC Glucose (mg/dL) 164 H (70-110) mg/dL Assessment and Plan (1) Former smoker Current Visit: Yes Status: Acute Code(s): Z87.891 - PERSONAL HISTORY OF NICOTINE DEPENDENCE SNOMED Code(s): 0358843 (2) CHF (congestive heart failure) Current Visit: Yes Status: Acute Code(s): I50.9 - HEART FAILURE, UNSPECIFIED SNOMED Code(s): 62921049 (3) Defibrillator discharge Current Visit: Yes Status: Acute Code(s): Z45.02 - ENCNTR FOR ADJUST AND MGMT OF AUTOMATIC IMPLNTBL CARD DEFIB SNOMED Code(s): 267121317 (4) Hypertension Current Visit: Yes Status: Acute Code(s): I10 - ESSENTIAL (PRIMARY) HYPERTENSION SNOMED Code(s): 28977289 (5) Hypoxic respiratory failure Current Visit: Yes Status: Acute Code(s): J96.91 - RESPIRATORY FAILURE, UNSPECIFIED WITH HYPOXIA SNOMED Code(s): 49959184580054895 (6) Pulmonary fibrosis Current Visit: Yes Status: Acute Code(s): J84.10 - PULMONARY FIBROSIS, UNSPECIFIED SNOMED Code(s): 45921837 Plan: Continue current regimen of treatment. Respiratory status has improved. Check CBC and CMP in a.m. Will continue to follow.
--- NOTE | 2024-02-02 10:43 | P.EPCON ---
Electrophysiology Consult - EP Consult Electrophysiology Consult: Patient was admitted with multiple ICD shocks He has a biventricular ICD, [employer]agena unify Assura model #3357-40 C, AT RISK PARAPROFESSIONAL-D Atrial pacing threshold 0.5 V at 0.5 ms, P waves 2.9 mV and pacing patient 310 ohms RV pacing threshold 2.4 V at 0.5 ms, R waves 5.1 mV and pacing impedance 230 ohms, lower from 390 ohms there was noted in November 2023 Noise noted in the RV channel LV threshold 3.5 V at 0.8 ms, LV tip-RV coil, pacing pins 400 ohms High-voltage impedance 80 ohms Noise detected in the RV channel resulting in inappropriate ICD shocks Impression Lead fracture of the ICD lead resulting in inappropriate ICD shocks Plan At this time the patient has severe COPD exacerbation with severe reduction in air entry with crackles at the bases. He is on IV steroids at this time He remains on guideline directed medical treatment for heart failure with beta- blockers Farxiga, Entresto and spironolactone He is also on IV Lasix which we are changing to p.o. Lasix Since he has severe COPD exacerbation at this time with hypoxia the tachycardia therapies were turned off, biventricular pacing was continued and an external vest is being ordered After about 4 to 6 weeks of very short course of steroids, once his hypoxia improved I will recommend a right sided lead implant of a new RV ICD lead with tunneling to the left side This procedure will be performed under general anesthesia hence it is being deferred at this time on account of his severe hypoxia and COPD exacerbation In addition he is on IV steroids which increases infection risk. Hopefully he will improve with a very short course of steroids p.o. and I will proceed with the procedure in about 6 weeks later Discussed with the patient and he is agreeable with the plan
--- NOTE | 2024-02-02 10:45 | CA ---
Transthoracic Echo Report Name: Elias Honeycutt Age: 63 Gender: M : 1960 Exam Date: 02/01/2024 15:36 Exam Location: [place] [facility] Ht (in): 67 Wt (lb): 230 Ordering Physician: Tj Serna MD Attending/Referring Phys: Damage Adjuster Terra Phelps RDCS Procedure CPT: Indications: dyspnea Cardiac Hx: AICD Technical Quality: Very technically difficult study Contrast 1: Definity Total Dose (mL): 2 Contrast 2: Total Dose (mL): MEASUREMENTS (Male / Female) Normal Values 2D ECHO LV Diastolic Diameter PLAX 4.6 cm 4.2 - 5.9 / 3.9 - 5.3 cm LV Systolic Diameter PLAX 3.1 cm IVS Diastolic Thickness 1.0 cm 0.6 - 1.0 / 0.6 - 0.9 cm LVPW Diastolic Thickness 1.1 cm 0.6 - 1.0 / 0.6 - 0.9 cm LV Relative Wall Thickness 0.5 RV Internal Dim ED PLAX 3.6 cm LA Systolic Diameter LX 3.8 cm 3.0 - 4.0 / 2.7 - 3.8 cm LA Volume 48.0 cm??? 18 - 58 / 22 - 52 cm??? LA Volume Index 21.2 cm???/m??? 16 - 28 cm???/m??? M-MODE Aortic Root Diameter MM 3.0 cm AV Cusp Separation MM 2.4 cm DOPPLER AV Peak Velocity 136.2 cm/s AV Peak Gradient 7.4 mmHg MV Area PHT 3.6 cm??? Mitral E Point Velocity 90.1 cm/s Mitral A Point Velocity 77.0 cm/s Mitral E to A Ratio 1.2 MV Deceleration Time 213.5 ms TR Peak Velocity 301.9 cm/s TR Peak Gradient 36.5 mmHg Right Ventricular Systolic Press 51.0 mmHg FINDINGS Left Ventricle Left ventricular ejection fraction is estimated at 50-55 %. Left ventricular cavity size normal. Left ventricular wall thickness normal. Normal left ventricular wall motion. Right Ventricle Mild right ventricular dilatation. Moderate pulmonary hypertension. Right Atrium Right atrium not well visualized. Left Atrium Normal left atrial size. Mitral Valve Structurally normal mitral valve. No mitral stenosis, regurgitation or prolapse. Aortic Valve Trileaflet aortic valve. Aortic valve sclerosis. No aortic valve stenosis or regurgitation. Tricuspid Valve Structurally normal tricuspid valve. Mild tricuspid regurgitation. Pulmonic Valve Structurally normal pulmonic valve. No pulmonic regurgitation. Pericardium No pericardial effusion. Aorta Normal size aortic root and proximal ascending aorta. CONCLUSIONS Technically difficult echo. Echo contrast was used. Fairly well-preserved systolic function. Mildly enlarged right ventricle. Mild mitral and tricuspid regurgitation. There is moderate pulmonary hypertension. No pericardial effusion Previewed by: Dr. Malaika Coker MD (Electronically Signed) Final Date: 02 February 2024 10:44
--- NOTE | 2024-02-02 11:33 | P.PN ---
Subjective HISTORY OF PRESENT ILLNESS: Patient is a pleasant 63-year-old male with significant past medical history of hypertension, hyperlipidemia, sleep apnea on CPAP, cardiomyopathy, status post AICD placement from 26 years ago who presents with worsening shortness of breath, chest heaviness, and AICD shock. He does follow with Dr. Michel in the office. He denies any significant family history of heart disease. He does not smoke. He reports that he has not been feeling well for the past week or so and has been having chest heaviness when he is walking. His leg swelling has gotten worse over the past couple weeks. He does state he was started on Farxiga approximately 6 weeks ago and his Lasix was stopped at that time. He does have some intermittent dizziness. Yesterday he was walking back to the bedroom from the bathroom when he felt weird began sweating for 1 to 2 minutes and then felt his AICD shocked him. He has never had a prior shock before. He did have a normal heart catheterization in 2004. He believes his last stress test was approximately 1-2 years ago. 02/01/2024 Patient examined this morning at the bedside. Patient does report mild shortness of breath this morning. He denies any chest pain or pressure. Vital signs are stable. Echocardiogram performed in July 2023 at the office revealed ejection fraction 40%, global LV hypokinesis, mildly dilated left atrium, mild mitral regurgitation, mild tricuspid regurgitation 02/02/2024 Patient examined at the bedside. Patient denies chest pain or pressure. Denies SOB. Vital signs are stable. PHYSICAL EXAM: VITAL SIGNS: Reviewed. GENERAL: Well-developed in no acute distress. NECK: Supple. No JVD or thyromegaly LUNGS: Respirations even and unlabored. Lungs with decreased air exchange HEART: Regular rate and rhythm. S1 and S2 heard. EXTREMITIES: Normal range of motion. No clubbing or cyanosis. Peripheral pulses intact. No lower extremity edema ASSESSMENT: Lead fracture of the ICD lead resulting in inappropriate ICD shocks Acute on chronic heart failure with reduced EF, 40% COPD exacerbation Nonischemic ardiomyopathy, status post AICD (Cartagena) Hypertension Hyperlipidemia PLAN: Discontinue IV lasix. Begin oral lasix 40 mg daily Pulmonary to manage COPD exacerbation Patients ICD function disabled per device rep yesterday Patient has a fractured ICD lead that needs to be replaced. However, Dr. Michel does not want to proceed with this until patient's pulmonary status has improved Will discharge home patient with LifeVest and replace ICD lead on an outpatient basis in 6 weeks Further recommendations pending patient course Nurse practitioner note has been reviewed by physician. Signing provider agrees with the documented findings, assessment, and plan of care documented by [employer] BEVELER as a scribe. Objective - Vital Signs Vital signs: Vital Signs Temp 98.5 F 02/02/24 10:06 Pulse 67 02/02/24 11:26 Resp 16 02/02/24 11:26 BP 118/64 02/02/24 10:06 Pulse Ox 93 L 02/02/24 10:06 FiO2 Intake & Output 02/01/24 02/02/24 02/02/24 18:59 06:59 18:59 Intake Total 720 Output Total 1250 580 Balance -530 -580 Weight 104.326 kg Intake: Oral 720 Output: Urine 1250 580 Other: Voiding Method External Catheter # Voids 2 - Labs CBC & Chem 7: 02/02/24 06:08 02/02/24 06:08 Labs: Abnormal Lab Results - Last 24 Hours (Table) 02/01/24 02/01/24 02/01/24 Range/Units 12:09 16:47 21:12 WBC (3.8-10.6) k/uL MCHC (31.0-37.0) g/dL Chloride (98-107) mmol/L Carbon Dioxide (22-30) mmol/L BUN (9-20) mg/dL Glucose (74-99) mg/dL POC Glucose (mg/dL) 126 H 254 H 147 H (70-110) mg/dL 02/02/24 02/02/24 02/02/24 Range/Units 06:08 06:08 06:12 WBC 14.5 H (3.8-10.6) k/uL MCHC 30.7 L (31.0-37.0) g/dL Chloride 97 L (98-107) mmol/L Carbon Dioxide 39 H (22-30) mmol/L BUN 28 H (9-20) mg/dL Glucose 103 H (74-99) mg/dL POC Glucose (mg/dL) 164 H (70-110) mg/dL
[2024-02-02 14:22] LABS: Glucose,Whole Blood 174 mg/dL (70-110)
[2024-02-02] MEDS: prednisoLONE ACETATE 1% OPHTH DROPS 5 ML BTL RIGHT EYE SCH (21:32)
[2024-02-02] MEDS: MOXIFLOXACIN HCL 0.5% DROPS 3 ML BTL RIGHT EYE SCH (21:32)
[2024-02-02] MEDS: KETOROLAC 0.5% OPHTH DROPS 5 ML BTL RIGHT EYE SCH (21:34)
[2024-02-02] MEDS: KETOROLAC 0.5% OPHTH DROPS 5 ML BTL LEFT EYE SCH (21:34)
[2024-02-02] MEDS: prednisoLONE ACETATE 1% OPHTH DROPS 5 ML BTL LEFT EYE SCH (21:35)
[2024-02-02 21:39] LABS: Glucose,Whole Blood 164 mg/dL (70-110)
--- NOTE | 2024-02-02 21:39 | P.PN ---
Subjective Progress Note Date: 02/02/24 Patient is a 63-year-old male with past medical history significant for obstructive sleep apnea with home CPAP, ischemic cardiomyopathy, AICD, hyperlipidemia, hypertension, obesity, and former tobacco smoker. Also, believes someone told him he has emphysema. Remote history of tobacco use over 20 years ago. Not currently on any inhalers or nebulized treatments at home. Patient was taken off Lasix approximately 2 months ago. Over this timeframe, he has noticed increased lower extremity swelling and abdominal fullness. He has been progressively more short of breath and fatigued. Last night, he was getting water for his CPAP machine. Became "winded", and felt a thump in his chest. His vision flashed. Never reportedly lost consciousness. Believes his defibrillator fired, which would be the first occurrence. He now has some vague chest discomfort/heaviness. Denies associated palpitations, nausea/vomiting. He called his animal herder office, who recommended he come to the emergency de partment to be evaluated. He was noted to be hypoxic. Originally, placed on a nonrebreather. CTA of the chest did not show any evidence for acute pulmonary embolism. There is moderate emphysematous changes with tiny bilateral pleural effusions and associated atelectasis. NT proBNP only 557. Initial troponin < 0.012. EKG showing ventricularly paced rhythm. Patient is being evaluated in the emergency department. Currently on 9 L high flow nasal cannula. SpO2 is 96%. Blood pressure normotensive. Rhythm appears ventricularly paced on bedside monitor. Afebrile. CBC: WBC count 11.8, hemoglobin 15.2, hematocrit 49.2, platelets 229. BMP is unremarkable. Negative for influenza, RSV, COVID. He has been started on Lasix 40 mg twice daily. Has already diuresed 750 mL of urine. Patient's AICD/pacemaker has not been interrogated, awaiting report. No further cardiac events while in the emergency department. On today's evaluation of 02/01/2024, the patient is being seen for a follow-up. Slightly improved compared to yesterday and the patient is feeling less short of breath. The patient is being diuresed with IV Lasix. The patient is currently on Lasix 40 mg IV every 12 hours and the patient has been in negative fluid balance. He is also on bronchodilators, and there is and the patient is currently on IV Solu-Medrol. CHF is being further optimized. Noted the patient was taken off the diuretics prior to his hospital admission by around 2 weeks. Currently, he is on Entresto, Coreg, Farxiga and IV Lasix. Aldactone is also on board. White circles of 16.3 with hemoglobin 14.7 and a platelet count of 224. BUN is 24 with a creatinine of 0.8 and a sodium levels of 141. The CT of the chest was done time of admission showed no evidence of any pulmonary embolism. The patient has background COPD with upper lobe predominance and a small right- sided pleural effusion and mild pulm vessel congestion. No evidence of any pulmonary embolism. On 02/02/2024, patient is being seen for a follow-up. No specific complaints. Oxygenation continues to improve and the patient oxygen requirement is down to 2 L nasal cannula with pulse ox of 91%. The patient remains in negative fluid balance. The patient continues to diurese with IV Lasix 20 mg IV every 12 hours. The patient will be switched to oral Lasix as of tomorrow 40 mg p.o. daily. The patient is also on Aldactone. Cardiac medications include Coreg, Entresto and Farxiga. The patient is also on Symbicort. The patient was taken off the IV Solu-Medrol and started on a Medrol Dosepak. BUN is 28 with a creatinine of 0.8 and sodium is at 142. WBC count 14.5 with hemoglobin 15.3. On a separate note, the patient was found to have a lead fracture of the AICD resulting in appropriate AICD shocks. The lead was deactivated and this needs to be replaced at the later stage. Objective - Vital Signs Vital signs: Vital Signs Temp 98.9 F 02/02/24 17:35 Pulse 64 02/02/24 20:44 Resp 20 02/02/24 17:35 BP 129/80 02/02/24 17:35 Pulse Ox 91 L 02/02/24 17:35 FiO2 Intake & Output 02/02/24 02/02/24 02/03/24 06:59 18:59 06:59 Output Total 1100 Balance -1100 Weight 104.326 kg Output: Urine 1100 Other: Voiding Method External Catheter External Catheter # Voids 2 # Bowel Movements 1 - Exam GENERAL EXAM: Alert, 63-year-old obese male, sitting up on the stretcher, on 2 L high flow nasal cannula, comfortable in no apparent distress. HEAD: Normocephalic and atraumatic EYES: Normal reaction of pupils, equal size. NOSE: Clear with pink turbinates. THROAT: No erythema or exudates. NECK: No masses, no JVD. CHEST: No chest wall deformity. Left chest implanted device LUNGS: Equal air entry with no crackles, wheeze, rhonchi or dullness. No conversational dyspnea or accessory muscle use.. CVS: S1 and S2 normal with no audible murmur, regular rhythm. No extra heart sounds ABDOMEN: Obese abdomen, active bowel sounds, no hepatosplenomegaly, no guarding or rigidity. SPINE: No scoliosis or deformity SKIN: No rashes CENTRAL NERVOUS SYSTEM: No focal deficits, tone is normal in all 4 extremities. EXTREMITIES: There is 1-2+ bilateral lower extremity edema. No clubbing, or cyanosis. Peripheral pulses are intact. - Labs CBC & Chem 7: 02/02/24 06:08 02/02/24 06:08 Labs: Abnormal Lab Results - Last 24 Hours (Table) 02/02/24 02/02/24 02/02/24 Range/Units 06:08 06:08 06:12 WBC 14.5 H (3.8-10.6) k/uL MCHC 30.7 L (31.0-37.0) g/dL Chloride 97 L (98-107) mmol/L Carbon Dioxide 39 H (22-30) mmol/L BUN 28 H (9-20) mg/dL Glucose 103 H (74-99) mg/dL POC Glucose (mg/dL) 164 H (70-110) mg/dL 02/02/24 Range/Units 14:19 WBC (3.8-10.6) k/uL MCHC (31.0-37.0) g/dL Chloride (98-107) mmol/L Carbon Dioxide (22-30) mmol/L BUN (9-20) mg/dL Glucose (74-99) mg/dL POC Glucose (mg/dL) 174 H (70-110) mg/dL Assessment and Plan Plan: Acute hypoxic respiratory failure, the patient improved and the patient is currently on 2 L of oxygen cannula.. Suspect acute systolic CHF exacerbation, chest CTA not showing any evidence of acute pulmonary embolism, moderate emphysematous changes noted with tiny bilateral pleural effusions and associated right-sided atelectasis. NT proBNP only mildly elevated at 557. Worsening bilateral lower extremity edema, and the patient has been off diuretics on outpatient basis, improving Suspect AICD discharge, due to a fractured RV lead and this was deactivated Acute hypoxemic respiratory failure, currently on improved on 2 L of oxygen by nasal cannula History of ischemic cardiomyopathy status post AICD/pacemaker implantation Obstructive sleep apnea, with home CPAP use Obesity, with a BMI of 36 kg/m History of hyperlipidemia History of hypertension COPD, stable Remote history of tobacco dependence, quitting over 20 years ago Plan: Oxygenation is improving and the patient is currently on 2 L of oxygen by nasal cannula Agree with continuing Lasix 40 mg twice daily, diuresing well and this will be continued for another 24 hours Cardiology also consulted AICD/pacemaker interrogation was performed, the lead was deactivated and the patient will need a lead replacement regarding his AICD Echocardiogram was showing preserved LV function with mild MR and TR and moderate degree of pulmonary hypertension. Chest CTA negative for filling defects or acute PE Patient is utilizing a home CPAP unit which was brought into the hospital We will continue to follow
[2024-02-03 06:13] LABS: Glucose,Whole Blood 85 mg/dL (70-110)
[2024-02-03 08:02] LABS: HCT 51.7 % (39.0-53.0); HGB 15.5 gm/dL (13.0-17.5); Hypochromasia Marked; MCH 28.8 pg (25.0-35.0); MCHC 29.9 g/dL (31.0-37.0); MCV 96.3 fL (80.0-100.0); Mean Platelet Volume 7.8; Platelet Count 232 k/uL (150-450); RBC 5.37 m/uL (4.30-5.90); RDW 14.2 % (11.5-15.5)
[2024-02-03 08:13] LABS: ALT 14 U/L (4-49); AST 25 U/L (17-59); African American GFR (CKD) >90 (>60 ml/min/1.73 sqM); Albumin 3.9 g/dL (3.5-5.0); Alkaline Phosphatase 79 U/L (38-126); Anion Gap 3 mmol/L; Blood Urea Nitrogen 25 mg/dL (9-20); Calcium 8.9 mg/dL (8.4-10.2); Carbon Dioxide 36 mmol/L (22-30); Chloride 100 mmol/L (98-107); Glucose 105 mg/dL (74-99); Non-African American GFR(CKD) >90 (>60 ml/min/1.73 sqM); Potassium 4.2 mmol/L (3.5-5.1); Sodium 139 mmol/L (137-145); Total Bilirubin 0.8 mg/dL (0.2-1.3); Total Protein 6.9 g/dL (6.3-8.2)
--- NOTE | 2024-02-03 08:41 | P.PN ---
Subjective Progress Note Date: 02/03/24 This is a 63-year-old male who originally presented to the emergency department AICD went off. Patient also reports increasing shortness of breath over the last several days. Patient does not have home oxygen. He is currently on 5 L of oxygen via nasal cannula and oxygen saturation is 94%. He has been seen and evaluated by cardiology and neurology. 02/03/2024 Patient seen this morning sitting on side of bed. He is now on 3 L of oxygen via nasal cannula with oxygen saturation at 94%. He is on oral steroids. He reports he is starting to feel somewhat better. He is tolerating diet and vitals are stable. Objective - Vital Signs Vital signs: Vital Signs Temp 97.8 F 02/03/24 04:00 Pulse 74 02/03/24 04:00 Resp 16 02/03/24 04:00 BP 111/63 02/03/24 04:00 Pulse Ox 94 L 02/03/24 04:00 FiO2 Intake & Output 02/02/24 02/03/24 02/03/24 18:59 06:59 18:59 Output Total 1100 1100 Balance -1100 -1100 Weight 110.4 kg Output: Urine 1100 1100 Other: Voiding Method External Catheter External Catheter # Bowel Movements 1 - Constitutional General appearance: Present: cooperative, no acute distress - EENT Eyes: Present: PERRLA - Neck Neck: Present: normal ROM. Absent: lymphadenopathy, rigidity - Respiratory Respiratory: bilateral: diminished - Cardiovascular Rhythm: regular Heart sounds: normal: S1, S2 - Gastrointestinal General gastrointestinal: Present: soft. Absent: tenderness - Integumentary Integumentary: Present: normal, normal turgor - Psychiatric Psychiatric: Present: A&O x's 3, appropriate affect, intact judgment & insight - Labs CBC & Chem 7: 02/03/24 07:41 02/03/24 07:41 Labs: Abnormal Lab Results - Last 24 Hours (Table) 02/02/24 02/02/24 02/03/24 Range/Units 14:19 21:37 07:41 WBC (3.8-10.6) k/uL MCHC (31.0-37.0) g/dL Carbon Dioxide 36 H (22-30) mmol/L BUN 25 H (9-20) mg/dL Glucose 105 H (74-99) mg/dL POC Glucose (mg/dL) 174 H 164 H (70-110) mg/dL 02/03/24 Range/Units 07:41 WBC 16.0 H (3.8-10.6) k/uL MCHC 29.9 L (31.0-37.0) g/dL Carbon Dioxide (22-30) mmol/L BUN (9-20) mg/dL Glucose (74-99) mg/dL POC Glucose (mg/dL) (70-110) mg/dL Assessment and Plan (1) Defibrillator discharge Current Visit: Yes Status: Acute Code(s): Z45.02 - ENCNTR FOR ADJUST AND MGMT OF AUTOMATIC IMPLNTBL CARD DEFIB SNOMED Code(s): 545973361 (2) Hypertension Current Visit: Yes Status: Acute Code(s): I10 - ESSENTIAL (PRIMARY) HYPERTENSION SNOMED Code(s): 51454708 (3) CHF (congestive heart failure) Current Visit: Yes Status: Acute Code(s): I50.9 - HEART FAILURE, UNSPECIFIED SNOMED Code(s): 75423837 (4) Hypoxic respiratory failure Current Visit: Yes Status: Acute Code(s): J96.91 - RESPIRATORY FAILURE, UNSPECIFIED WITH HYPOXIA SNOMED Code(s): 79976749012906754 Plan: Check CBC and CMP in the morning. Continue oral steroids. Anticipate discharge in the next 24 to 48 hours. Patient seen and evaluated by nurse practitioner, physician in agreement with plan
[2024-02-03 10:47] VITALS: TEMP 97.6
[2024-02-03 11:36] LABS: Glucose,Whole Blood 124 mg/dL (70-110)
--- NOTE | 2024-02-03 12:00 | P.PN ---
Subjective HISTORY OF PRESENT ILLNESS: Patient is a pleasant 63-year-old male with significant past medical history of hypertension, hyperlipidemia, sleep apnea on CPAP, cardiomyopathy, status post AICD placement from 26 years ago who presents with worsening shortness of breath, chest heaviness, and AICD shock. He does follow with Dr. Michel in the office. He denies any significant family history of heart disease. He does not smoke. He reports that he has not been feeling well for the past week or so and has been having chest heaviness when he is walking. His leg swelling has gotten worse over the past couple weeks. He does state he was started on Farxiga approximately 6 weeks ago and his Lasix was stopped at that time. He does have some intermittent dizziness. Yesterday he was walking back to the bedroom from the bathroom when he felt weird began sweating for 1 to 2 minutes and then felt his AICD shocked him. He has never had a prior shock before. He did have a normal heart catheterization in 2004. He believes his last stress test was approximately 1-2 years ago. 02/01/2024 Patient examined this morning at the bedside. Patient does report mild shortness of breath this morning. He denies any chest pain or pressure. Vital signs are stable. Echocardiogram performed in July 2023 at the office revealed ejection fraction 40%, global LV hypokinesis, mildly dilated left atrium, mild mitral regurgitation, mild tricuspid regurgitation 02/02/2024 Patient examined at the bedside. Patient denies chest pain or pressure. Denies SOB. Vital signs are stable. 02/03/2024 Patient examined at the bedside. Patient denies chest pain or pressure. Denies SOB. Vital signs are stable. Patient received Lifevest yesterday. PHYSICAL EXAM: VITAL SIGNS: Reviewed. GENERAL: Well-developed in no acute distress. NECK: Supple. No JVD or thyromegaly LUNGS: Respirations even and unlabored. Lungs with decreased air exchange HEART: Regular rate and rhythm. S1 and S2 heard. EXTREMITIES: Normal range of motion. No clubbing or cyanosis. Peripheral pulses intact. No lower extremity edema ASSESSMENT: Lead fracture of the ICD lead resulting in inappropriate ICD shocks Acute on chronic heart failure with reduced EF, 40% COPD exacerbation Nonischemic ardiomyopathy, status post AICD ([employer]) Hypertension Hyperlipidemia PLAN: Patients ICD function disabled per device rep Patient has a fractured ICD lead that needs to be replaced. However, Dr. Michel does not want to proceed with this until patient's pulmonary status has improved Will discharge home patient with LifeVest and replace ICD lead on an outpatient basis in 6 weeks Discontinue coreg after tonights dose and begin metoprolol succinate 100mg daily starting tomorrow in an attempt to improve patients pulmonary status Further recommendations pending patient course Nurse practitioner note has been reviewed by physician. Signing provider agrees with the documented findings, assessment, and plan of care documented by RABIES INSPECTOR as a scribe. Objective - Vital Signs Vital signs: Vital Signs Temp 97.6 F 02/03/24 08:00 Pulse 72 02/03/24 09:23 Resp 16 02/03/24 08:00 BP 106/64 02/03/24 08:00 Pulse Ox 92 L 02/03/24 08:00 FiO2 Intake & Output 02/02/24 02/03/24 02/03/24 18:59 06:59 18:59 Output Total 1100 1100 Balance -1100 -1100 Weight 110.4 kg Output: Urine 1100 1100 Other: Voiding Method External Catheter External Catheter External Catheter # Bowel Movements 1 - Labs CBC & Chem 7: 02/03/24 07:41 02/03/24 07:41 Labs: Abnormal Lab Results - Last 24 Hours (Table) 02/02/24 02/02/24 02/03/24 Range/Units 14:19 21:37 07:41 WBC (3.8-10.6) k/uL MCHC (31.0-37.0) g/dL Carbon Dioxide 36 H (22-30) mmol/L BUN 25 H (9-20) mg/dL Glucose 105 H (74-99) mg/dL POC Glucose (mg/dL) 174 H 164 H (70-110) mg/dL 02/03/24 02/03/24 Range/Units 07:41 11:35 WBC 16.0 H (3.8-10.6) k/uL MCHC 29.9 L (31.0-37.0) g/dL Carbon Dioxide (22-30) mmol/L BUN (9-20) mg/dL Glucose (74-99) mg/dL POC Glucose (mg/dL) 124 H (70-110) mg/dL
--- NOTE | 2024-02-03 15:34 | P.PN ---
Subjective Progress Note Date: 02/03/24 Patient is a 63-year-old male with past medical history significant for obstructive sleep apnea with home CPAP, ischemic cardiomyopathy, AICD, hyperlipidemia, hypertension, obesity, and former tobacco smoker. Also, believes someone told him he has emphysema. Remote history of tobacco use over 20 years ago. Not currently on any inhalers or nebulized treatments at home. Patient was taken off Lasix approximately 2 months ago. Over this timeframe, he has noticed increased lower extremity swelling and abdominal fullness. He has been progressively more short of breath and fatigued. Last night, he was getting water for his CPAP machine. Became "winded", and felt a thump in his chest. His vision flashed. Never reportedly lost consciousness. Believes his defibrillator fired, which would be the first occurrence. He now has some vague chest discomfort/heaviness. Denies associated palpitations, nausea/vomiting. He called his washer and crusher tender office, who recommended he come to the emergency de partment to be evaluated. He was noted to be hypoxic. Originally, placed on a nonrebreather. CTA of the chest did not show any evidence for acute pulmonary embolism. There is moderate emphysematous changes with tiny bilateral pleural effusions and associated atelectasis. NT proBNP only 557. Initial troponin < 0.012. EKG showing ventricularly paced rhythm. Patient is being evaluated in the emergency department. Currently on 9 L high flow nasal cannula. SpO2 is 96%. Blood pressure normotensive. Rhythm appears ventricularly paced on bedside monitor. Afebrile. CBC: WBC count 11.8, hemoglobin 15.2, hematocrit 49.2, platelets 229. BMP is unremarkable. Negative for influenza, RSV, COVID. He has been started on Lasix 40 mg twice daily. Has already diuresed 750 mL of urine. Patient's AICD/pacemaker has not been interrogated, awaiting report. No further cardiac events while in the emergency department. On today's evaluation of 02/01/2024, the patient is being seen for a follow-up. Slightly improved compared to yesterday and the patient is feeling less short of breath. The patient is being diuresed with IV Lasix. The patient is currently on Lasix 40 mg IV every 12 hours and the patient has been in negative fluid balance. He is also on bronchodilators, and there is and the patient is currently on IV Solu-Medrol. CHF is being further optimized. Noted the patient was taken off the diuretics prior to his hospital admission by around 2 weeks. Currently, he is on Entresto, Coreg, Farxiga and IV Lasix. Aldactone is also on board. White circles of 16.3 with hemoglobin 14.7 and a platelet count of 224. BUN is 24 with a creatinine of 0.8 and a sodium levels of 141. The CT of the chest was done time of admission showed no evidence of any pulmonary embolism. The patient has background COPD with upper lobe predominance and a small right- sided pleural effusion and mild pulm vessel congestion. No evidence of any pulmonary embolism. On 02/02/2024, patient is being seen for a follow-up. No specific complaints. Oxygenation continues to improve and the patient oxygen requirement is down to 2 L nasal cannula with pulse ox of 91%. The patient remains in negative fluid balance. The patient continues to diurese with IV Lasix 20 mg IV every 12 hours. The patient will be switched to oral Lasix as of tomorrow 40 mg p.o. daily. The patient is also on Aldactone. Cardiac medications include Coreg, Entresto and Farxiga. The patient is also on Symbicort. The patient was taken off the IV Solu-Medrol and started on a Medrol Dosepak. BUN is 28 with a creatinine of 0.8 and sodium is at 142. WBC count 14.5 with hemoglobin 15.3. On a separate note, the patient was found to have a lead fracture of the AICD resulting in appropriate AICD shocks. The lead was deactivated and this needs to be replaced at the later stage. On 02/03/2024, the patient is being seen for a follow-up. Patient is doing well still on 2 L of oxygen by nasal cannula. No chest pain. No shortness of breath. He is currently off IV Lasix and the patient has been switched to oral Lasix 40 mg p.o. daily. He remains on DuoNeb nebulized treatments [id number] the his cardiac medication include a combination of Farxiga, Entresto, Aldactone. The labs showed WBC count of 16 with a hemoglobin 15.5, BUN 25 with a creatinine of 0.68 and a sodium levels at 139. Normal LFTs. No o ther significant events overnight. Utilizing his CPAP overnight. Objective - Vital Signs Vital signs: Vital Signs Temp 97.6 F 02/03/24 08:00 Pulse 72 02/03/24 09:23 Resp 16 02/03/24 08:00 BP 106/64 02/03/24 08:00 Pulse Ox 92 L 02/03/24 08:00 FiO2 Intake & Output 02/02/24 02/03/24 02/03/24 18:59 06:59 18:59 Output Total 1100 1100 Balance -1100 -1100 Weight 110.4 kg Output: Urine 1100 1100 Other: Voiding Method External Catheter External Catheter External Catheter # Bowel Movements 1 - Exam GENERAL EXAM: Alert, 63-year-old obese male, sitting up on the stretcher, on 2 L high flow nasal cannula, comfortable in no apparent distress. HEAD: Normocephalic and atraumatic EYES: Normal reaction of pupils, equal size. NOSE: Clear with pink turbinates. THROAT: No erythema or exudates. NECK: No masses, no JVD. CHEST: No chest wall deformity. Left chest implanted device LUNGS: Equal air entry with no crackles, wheeze, rhonchi or dullness. No conversational dyspnea or accessory muscle use.. CVS: S1 and S2 normal with no audible murmur, regular rhythm. No extra heart sounds ABDOMEN: Obese abdomen, active bowel sounds, no hepatosplenomegaly, no guarding or rigidity. SPINE: No scoliosis or deformity SKIN: No rashes CENTRAL NERVOUS SYSTEM: No focal deficits, tone is normal in all 4 extremities. EXTREMITIES: There is 1-2+ bilateral lower extremity edema. No clubbing, or cyanosis. Peripheral pulses are intact. - Labs CBC & Chem 7: 02/03/24 07:41 02/03/24 07:41 Labs: Abnormal Lab Results - Last 24 Hours (Table) 02/02/24 02/02/24 02/03/24 Range/Units 14:19 21:37 07:41 WBC (3.8-10.6) k/uL MCHC (31.0-37.0) g/dL Carbon Dioxide 36 H (22-30) mmol/L BUN 25 H (9-20) mg/dL Glucose 105 H (74-99) mg/dL POC Glucose (mg/dL) 174 H 164 H (70-110) mg/dL 02/03/24 Range/Units 07:41 WBC 16.0 H (3.8-10.6) k/uL MCHC 29.9 L (31.0-37.0) g/dL Carbon Dioxide (22-30) mmol/L BUN (9-20) mg/dL Glucose (74-99) mg/dL POC Glucose (mg/dL) (70-110) mg/dL Assessment and Plan Plan: Acute hypoxic respiratory failure, the patient improved and the patient is currently on 2 L of oxygen cannula.. Suspect acute systolic CHF exacerbation, chest CTA not showing any evidence of acute pulmonary embolism, moderate emphysematous changes noted with tiny bilateral pleural effusions and associated right-sided atelectasis. NT proBNP only mildly elevated at 557. Patient is currently on oral Lasix. Worsening bilateral lower extremity edema, and the patient has been off diuretics on outpatient basis, improving Suspect AICD discharge, due to a fractured RV lead and this was deactivated Acute hypoxemic respiratory failure, currently on improved on 2 L of oxygen by nasal cannula History of ischemic cardiomyopathy status post AICD/pacemaker implantation Obstructive sleep apnea, with home CPAP use Obesity, with a BMI of 36 kg/m History of hyperlipidemia History of hypertension COPD, stable Remote history of tobacco dependence, quitting over 20 years ago Plan: Oxygenation is improving and the patient is currently on 2 L of oxygen by nasal cannula Agree with continuing Lasix 40 mg daily, Cardiology also consulted AICD/pacemaker interrogation was performed, the lead was deactivated and the patient will need a lead replacement regarding his AICD Echocardiogram was showing preserved LV function with mild MR and TR and moderate degree of pulmonary hypertension. Chest CTA negative for filling defects or acute PE Patient is utilizing a home CPAP unit which was brought into the hospital We will continue to follow
[2024-02-03 17:21] LABS: Glucose,Whole Blood 121 mg/dL (70-110)
[2024-02-03 20:16] LABS: Glucose,Whole Blood 143 mg/dL (70-110)
[2024-02-03] MEDS: FAMOTIDINE 20 MG TAB PO SCH (21:12)
[2024-02-04 00:01] VITALS: RESP 20
[2024-02-04 06:03] LABS: Glucose,Whole Blood 134 mg/dL (70-110)
[2024-02-04 06:57] LABS: HCT 49.6 % (39.0-53.0); HGB 15.6 gm/dL (13.0-17.5); Hypochromasia Marked; MCH 29.6 pg (25.0-35.0); MCHC 31.5 g/dL (31.0-37.0); Mean Platelet Volume 7.9; Platelet Count 235 k/uL (150-450); RBC 5.28 m/uL (4.30-5.90); RDW 14.2 % (11.5-15.5); WBC 17.9 k/uL (3.8-10.6)
[2024-02-04 07:37] LABS: ALT 15 U/L (4-49); AST 19 U/L (17-59); African American GFR (CKD) >90 (>60 ml/min/1.73 sqM); Alkaline Phosphatase 81 U/L (38-126); Anion Gap 5 mmol/L; Blood Urea Nitrogen 27 mg/dL (9-20); Calcium 9.3 mg/dL (8.4-10.2); Carbon Dioxide 35 mmol/L (22-30); Chloride 97 mmol/L (98-107); Glucose 100 mg/dL (74-99); Non-African American GFR(CKD) >90 (>60 ml/min/1.73 sqM); Potassium 4.2 mmol/L (3.5-5.1); Sodium 137 mmol/L (137-145); Total Bilirubin 1.1 mg/dL (0.2-1.3); Total Protein 7.1 g/dL (6.3-8.2)
--- NOTE | 2024-02-04 08:41 | P.PN ---
Subjective Principal diagnosis: Acute respiratory failure. Patient is a 63-year-old white male who his respiratory status has improved since yesterday. Decreased oxygen requirement and he is sitting up comfortably compared to yesterday. No voiding difficulties. Appreciate multiple consultants input. Question element of acute systolic congestive heart failure. Element of AICD shock. No voiding difficulty The patient has been stabilized. AICD will be placed as an outpatient LifeVest is being instituted. Objective - Vital Signs Vital signs: Vital Signs Temp 97.6 F 02/03/24 08:00 Pulse 74 02/04/24 08:35 Resp 20 02/04/24 04:00 BP 137/79 02/04/24 04:00 Pulse Ox 91 L 02/04/24 04:00 FiO2 Intake & Output 02/03/24 02/04/24 02/04/24 18:59 06:59 18:59 Intake Total 360 Output Total 120 Balance 240 Weight 110.3 kg Intake: Oral 360 Output: Urine 120 Other: Voiding Method External Catheter External Catheter # Voids 2 - Constitutional General appearance: Present: average body habitus, cooperative. Absent: no acute distress - EENT Eyes: Absent: abnormal pupil - Neck Neck: Absent: lymphadenopathy - Respiratory Respiratory: bilateral: diminished - Cardiovascular Rhythm: regular Heart sounds: normal: S1, S2 Abnormal Heart Sounds: Absent: S3 Gallop - Gastrointestinal General gastrointestinal: Present: soft. Absent: tenderness - Integumentary Integumentary: Absent: cellulitis - Labs CBC & Chem 7: 02/04/24 06:22 02/04/24 06:22 Labs: Abnormal Lab Results - Last 24 Hours (Table) 02/03/24 02/03/24 02/03/24 Range/Units 11:35 17:19 20:15 WBC (3.8-10.6) k/uL Chloride (98-107) mmol/L Carbon Dioxide (22-30) mmol/L BUN (9-20) mg/dL Glucose (74-99) mg/dL POC Glucose (mg/dL) 124 H 121 H 143 H (70-110) mg/dL 02/04/24 02/04/24 02/04/24 Range/Units 06:01 06:22 06:22 WBC 17.9 H (3.8-10.6) k/uL Chloride 97 L (98-107) mmol/L Carbon Dioxide 35 H (22-30) mmol/L BUN 27 H (9-20) mg/dL Glucose 100 H (74-99) mg/dL POC Glucose (mg/dL) 134 H (70-110) mg/dL Assessment and Plan (1) Former smoker Current Visit: Yes Status: Acute Code(s): Z87.891 - PERSONAL HISTORY OF NICOTINE DEPENDENCE SNOMED Code(s): 5999755 (2) CHF (congestive heart failure) Current Visit: Yes Status: Acute Code(s): I50.9 - HEART FAILURE, UNSPECIFIED SNOMED Code(s): 61336140 (3) Defibrillator discharge Current Visit: Yes Status: Acute Code(s): Z45.02 - ENCNTR FOR ADJUST AND MGMT OF AUTOMATIC IMPLNTBL CARD DEFIB SNOMED Code(s): 789199244 (4) Hypertension Current Visit: Yes Status: Acute Code(s): I10 - ESSENTIAL (PRIMARY) HYPERT ENSION SNOMED Code(s): 74597361 (5) Hypoxic respiratory failure Current Visit: Yes Status: Acute Code(s): J96.91 - RESPIRATORY FAILURE, UNSPECIFIED WITH HYPOXIA SNOMED Code(s): 98602177221676758 (6) Pulmonary fibrosis Current Visit: Yes Status: Acute Code(s): J84.10 - PULMONARY FIBROSIS, UNSPECIFIED SNOMED Code(s): 03307185 Plan: Continue current regimen of treatment. LifeVest and AICD placement to be instituted as per cardiology. Respiratory status has improved. Anticipate discharge when cleared by pulmonology/cardiology. Time with Patient: Greater than 30
[2024-02-04] MEDS: METOPROLOL SUCCINATE (ER) 100 MG TAB.ER.24H PO SCH (09:12)
[2024-02-04] MEDS: METOPROLOL SUCCINATE (ER) 50 MG TAB.ER.24H PO STA (09:43)
--- NOTE | 2024-02-04 11:26 | P.PN ---
Subjective HISTORY OF PRESENT ILLNESS: Patient is a pleasant 63-year-old male with significant past medical history of hypertension, hyperlipidemia, sleep apnea on CPAP, cardiomyopathy, status post AICD placement from 26 years ago who presents with worsening shortness of breath, chest heaviness, and AICD shock. He does follow with Dr. Michel in the office. He denies any significant family history of heart disease. He does not smoke. He reports that he has not been feeling well for the past week or so and has been having chest heaviness when he is walking. His leg swelling has gotten worse over the past couple weeks. He does state he was started on Farxiga approximately 6 weeks ago and his Lasix was stopped at that time. He does have some intermittent dizziness. Yesterday he was walking back to the bedroom from the bathroom when he felt weird began sweating for 1 to 2 minutes and then felt his AICD shocked him. He has never had a prior shock before. He did have a normal heart catheterization in 2004. He believes his last stress test was approximately 1-2 years ago. 02/01/2024 Patient examined this morning at the bedside. Patient does report mild shortness of breath this morning. He denies any chest pain or pressure. Vital signs are stable. Echocardiogram performed in July 2023 at the office revealed ejection fraction 40%, global LV hypokinesis, mildly dilated left atrium, mild mitral regurgitation, mild tricuspid regurgitation 02/02/2024 Patient examined at the bedside. Patient denies chest pain or pressure. Denies SOB. Vital signs are stable. 02/03/2024 Patient examined at the bedside. Patient denies chest pain or pressure. Denies SOB. Vital signs are stable. Patient received Lifevest yesterday. 02/04/2024 Patient examined at the bedside. Patient denies chest pain or pressure. Denies SOB. Vital signs are stable. Patient received Lifevest. He is complaining of urinary frequency and episodes of incontinence. PHYSICAL EXAM: VITAL SIGNS: Reviewed. GENERAL: Well-developed in no acute distress. NECK: Supple. No JVD or thyromegaly LUNGS: Respirations even and unlabored. Lungs with decreased air exchange HEART: Regular rate and rhythm. S1 and S2 heard. EXTREMITIES: Normal range of motion. No clubbing or cyanosis. Peripheral pulses intact. No lower extremity edema ASSESSMENT: Lead fracture of the ICD lead resulting in inappropriate ICD shocks Acute on chronic heart failure with reduced EF, 40% COPD exacerbation Nonischemic ardiomyopathy, status post AICD (Cartagena) Hypertension Hyperlipidemia PLAN: Patients ICD function disabled per device rep Patient has a fractured ICD lead that needs to be replaced. However, Dr. Michel does not want to proceed with this until patient's pulmonary status has improved Will discharge home patient with LifeVest and replace ICD lead on an outpatient basis in 6 weeks Decrease Lasix to 20 mg daily Patient may be discharged home today from a cardiac standpoint Nurse practitioner note has been reviewed by physician. Signing provider agrees with the documented findings, assessment, and plan of care documented by [employer] as a scribe. Objective - Vital Signs Vital signs: Vital Signs Temp 97.6 F 02/03/24 08:00 Pulse 75 02/04/24 08:45 Resp 20 02/04/24 08:00 BP 131/79 02/04/24 08:00 Pulse Ox 92 L 02/04/24 11:18 FiO2 Intake & Output 02/03/24 02/04/24 02/04/24 18:59 06:59 18:59 Intake Total 360 Output Total 120 Balance 240 Weight 110.3 kg Intake: Oral 360 Output: Urine 120 Other: Voiding Method External Catheter External Catheter External Catheter # Voids 2 - Labs CBC & Chem 7: 02/04/24 06:22 02/04/24 06:22 Labs: Abnormal Lab Results - Last 24 Hours (Table) 02/03/24 02/03/24 02/03/24 Range/Units 11:35 17:19 20:15 WBC (3.8-10.6) k/uL Chloride (98-107) mmol/L Carbon Dioxide (22-30) mmol/L BUN (9-20) mg/dL Glucose (74-99) mg/dL POC Glucose (mg/dL) 124 H 121 H 143 H (70-110) mg/dL 02/04/24 02/04/24 02/04/24 Range/Units 06:01 06:22 06:22 WBC 17.9 H (3.8-10.6) k/uL Chloride 97 L (98-107) mmol/L Carbon Dioxide 35 H (22-30) mmol/L BUN 27 H (9-20) mg/dL Glucose 100 H (74-99) mg/dL POC Glucose (mg/dL) 134 H (70-110) mg/dL
[2024-02-04 12:25] LABS: Glucose,Whole Blood 177 mg/dL (70-110)
--- NOTE | 2024-02-04 14:41 | P.PN ---
Subjective Progress Note Date: 02/04/24 Patient is a 63-year-old male with past medical history significant for obstructive sleep apnea with home CPAP, ischemic cardiomyopathy, AICD, hyperlipidemia, hypertension, obesity, and former tobacco smoker. Also, believes someone told him he has emphysema. Remote history of tobacco use over 20 years ago. Not currently on any inhalers or nebulized treatments at home. Patient was taken off Lasix approximately 2 months ago. Over this timeframe, he has noticed increased lower extremity swelling and abdominal fullness. He has been progressively more short of breath and fatigued. Last night, he was getting water for his CPAP machine. Became "winded", and felt a thump in his chest. His vision flashed. Never reportedly lost consciousness. Believes his defibrillator fired, which would be the first occurrence. He now has some vague chest discomfort/heaviness. Denies associated palpitations, nausea/vomiting. He called his labels molder office, who recommended he come to the emergency de partment to be evaluated. He was noted to be hypoxic. Originally, placed on a nonrebreather. CTA of the chest did not show any evidence for acute pulmonary embolism. There is moderate emphysematous changes with tiny bilateral pleural effusions and associated atelectasis. NT proBNP only 557. Initial troponin < 0.012. EKG showing ventricularly paced rhythm. Patient is being evaluated in the emergency department. Currently on 9 L high flow nasal cannula. SpO2 is 96%. Blood pressure normotensive. Rhythm appears ventricularly paced on bedside monitor. Afebrile. CBC: WBC count 11.8, hemoglobin 15.2, hematocrit 49.2, platelets 229. BMP is unremarkable. Negative for influenza, RSV, COVID. He has been started on Lasix 40 mg twice daily. Has already diuresed 750 mL of urine. Patient's AICD/pacemaker has not been interrogated, awaiting report. No further cardiac events while in the emergency department. On today's evaluation of 02/01/2024, the patient is being seen for a follow-up. Slightly improved compared to yesterday and the patient is feeling less short of breath. The patient is being diuresed with IV Lasix. The patient is currently on Lasix 40 mg IV every 12 hours and the patient has been in negative fluid balance. He is also on bronchodilators, and there is and the patient is currently on IV Solu-Medrol. CHF is being further optimized. Noted the patient was taken off the diuretics prior to his hospital admission by around 2 weeks. Currently, he is on Entresto, Coreg, Farxiga and IV Lasix. Aldactone is also on board. White circles of 16.3 with hemoglobin 14.7 and a platelet count of 224. BUN is 24 with a creatinine of 0.8 and a sodium levels of 141. The CT of the chest was done time of admission showed no evidence of any pulmonary embolism. The patient has background COPD with upper lobe predominance and a small right- sided pleural effusion and mild pulm vessel congestion. No evidence of any pulmonary embolism. On 02/02/2024, patient is being seen for a follow-up. No specific complaints. Oxygenation continues to improve and the patient oxygen requirement is down to 2 L nasal cannula with pulse ox of 91%. The patient remains in negative fluid balance. The patient continues to diurese with IV Lasix 20 mg IV every 12 hours. The patient will be switched to oral Lasix as of tomorrow 40 mg p.o. daily. The patient is also on Aldactone. Cardiac medications include Coreg, Entresto and Farxiga. The patient is also on Symbicort. The patient was taken off the IV Solu-Medrol and started on a Medrol Dosepak. BUN is 28 with a creatinine of 0.8 and sodium is at 142. WBC count 14.5 with hemoglobin 15.3. On a separate note, the patient was found to have a lead fracture of the AICD resulting in appropriate AICD shocks. The lead was deactivated and this needs to be replaced at the later stage. On 02/03/2024, the patient is being seen for a follow-up. Patient is doing well still on 2 L of oxygen by nasal cannula. No chest pain. No shortness of breath. He is currently off IV Lasix and the patient has been switched to oral Lasix 40 mg p.o. daily. He remains on DuoNeb nebulized treatments [id number] the his cardiac medication include a combination of Farxiga, Entresto, Aldactone. The labs showed WBC count of 16 with a hemoglobin 15.5, BUN 25 with a creatinine of 0.68 and a sodium levels at 139. Normal LFTs. No o ther significant events overnight. Utilizing his CPAP overnight. On 02/04/2024, the patient is being seen for a follow-up. Patient is doing well with no specific complaints. Remains on 2 L of oxygen by nasal cannula. 2 L home O2. Producing adequate amount of urine output. Continues to diurese well and the fluid balance has been negative over the past 24 hours. The patient has been -2.2 L at least based on urine output. White circular 17 with a hemoglobin 15.6, BUN 27 with a creatinine 0.7 and a sodium levels at 137. No other significant events overnight. Clinically stable. Hemodynamically stable. Utilizing his own CPAP machine overnight. Cardiac medications remain unchanged. Objective - Vital Signs Vital signs: Vital Signs Temp 97.6 F 02/03/24 08:00 Pulse 75 02/04/24 08:45 Resp 20 02/04/24 08:00 BP 131/79 02/04/24 08:00 Pulse Ox 92 L 02/04/24 11:18 FiO2 Intake & Output 02/03/24 02/04/24 02/04/24 18:59 06:59 18:59 Intake Total 360 Output Total 120 Balance 240 Weight 110.3 kg Intake: Oral 360 Output: Urine 120 Other: Voiding Method External Catheter External Catheter External Catheter # Voids 2 - Exam GENERAL EXAM: Alert, 63-year-old obese male, sitting up on the stretcher, on 2 L high flow nasal cannula, comfortable in no apparent distress. HEAD: Normocephalic and atraumatic EYES: Normal reaction of pupils, equal size. NOSE: Clear with pink turbinates. THROAT: No erythema or exudates. NECK: No masses, no JVD. CHEST: No chest wall deformity. Left chest implanted device LUNGS: Equal air entry with no crackles, wheeze, rhonchi or dullness. No conversational dyspnea or accessory muscle use.. CVS: S1 and S2 normal with no audible murmur, regular rhythm. No extra heart s ounds ABDOMEN: Obese abdomen, active bowel sounds, no hepatosplenomegaly, no guarding or rigidity. SPINE: No scoliosis or deformity SKIN: No rashes CENTRAL NERVOUS SYSTEM: No focal deficits, tone is normal in all 4 extremities. EXTREMITIES: There is 1-2+ bilateral lower extremity edema. No clubbing, or cyanosis. Peripheral pulses are intact. - Labs CBC & Chem 7: 02/04/24 06:22 02/04/24 06:22 Labs: Abnormal Lab Results - Last 24 Hours (Table) 02/03/24 02/03/24 02/04/24 Range/Units 17:19 20:15 06:01 WBC (3.8-10.6) k/uL Chloride (98-107) mmol/L Carbon Dioxide (22-30) mmol/L BUN (9-20) mg/dL Glucose (74-99) mg/dL POC Glucose (mg/dL) 121 H 143 H 134 H (70-110) mg/dL 02/04/24 02/04/24 Range/Units 06:22 06:22 WBC 17.9 H (3.8-10.6) k/uL Chloride 97 L (98-107) mmol/L Carbon Dioxide 35 H (22-30) mmol/L BUN 27 H (9-20) mg/dL Glucose 100 H (74-99) mg/dL POC Glucose (mg/dL) (70-110) mg/dL Assessment and Plan Plan: Acute hypoxic respiratory failure, the patient improved and the patient is currently on 2 L of oxygen cannula.. Suspect acute systolic CHF exacerbation, chest CTA not showing any evidence of acute pulmonary embolism, moderate emphysematous changes noted with tiny bilateral pleural effusions and associated right-sided atelectasis. NT proBNP only mildly elevated at 557. Patient is currently on oral Lasix. The patient continues to produce excellent amount of urine output. Continues to have edema lower extremities bilaterally. Worsening bilateral lower extremity edema, and the patient has been off diuretics on outpatient basis, improving Suspect AICD discharge, due to a fractured RV lead and this was deactivated Acute hypoxemic respiratory failure, currently on improved on 2 L of oxygen by nasal cannula History of ischemic cardiomyopathy status post AICD/pacemaker implantation Obstructive sleep apnea, with home CPAP use Obesity, with a BMI of 36 kg/m History of hyperlipidemia History of hypertension COPD, stable Remote history of tobacco dependence, quitting over 20 years ago Plan: Oxygenation is improving and the patient is currently on 2 L of oxygen by nasal cannula Agree with continuing Lasix 40 mg daily, Cardiology also consulted AICD/pacemaker interrogation was performed, the lead was deactivated and the patient will need a lead replacement regarding his AICD Echocardiogram was showing preserved LV function with mild MR and TR and moderate degree of pulmonary hypertension. Chest CTA negative for filling defects or acute PE Patient is utilizing a home CPAP unit which was brought into the hospital arrange home O2 We will continue to follow
[2024-02-04 15:13] VITALS: BP 114/75; PULSE 74
--- NOTE | 2024-02-04 16:27 | P.DS ---
Providers Date of admission: 01/31/24 01:26 Attending physician: Dharmesh Callahan Consults: 01/31/24 01:23 Consult Physician Routine Consulting Provider: Francis Shepard Consult Reason/Comments: hypoxic resp failure on high flow from pulm fibrosis/chf Do you want consulting provider notified?: Yes Consult Physician Routine Consulting Provider: [facility] Consult Reason/Comments: chf, defibrillator discharge Do you want consulting provider notified?: Yes Primary care physician: Dharmesh Callahan - Discharge Diagnosis(es) (1) Former smoker Current Visit: Yes Status: Acute (2) CHF (congestive heart failure) Current Visit: Yes Status: Acute (3) Defibrillator discharge Current Visit: Yes Status: Acute (4) Hypertension Current Visit: Yes Status: Acute (5) Hypoxic respiratory failure Current Visit: Yes Status: Acute (6) Pulmonary fibrosis Current Visit: Yes Status: Acute Hospital Course: This is discharge summary an 63-year-old white male admitted for AICD discharge and respiratory failure. The patient was admitted for appropriate respiratory distress. Stabilized with congestive heart failure. Workup from cardiology was that the AICD lead was displaced and will need to be repaired as an outpatient. He will wear a LifeVest for a short period of time and then get the defibrillator repaired. He was placed on appropriate medications stabilized cardial pulmonary status., Neurology was also consulted. He is discharged in stable condition but still needs home oxygen. No voiding difficulties. The patient will follow up with me in 5-7 days Patient Condition at Discharge: Serious Plan - Discharge Summary New Discharge Prescriptions: New Ipratropium-Albuterol Nebulize [Duoneb 0.5 mg-3 mg/3 ml Soln] 3 ml INHALATION RT-QID #100 each Furosemide [Lasix] 20 mg PO DAILY #30 tab methylPREDNISolone Dose Pack [Medrol Dose Pack] 4 mg PO DAILY #1 pack Metoprolol Succinate (ER) [Toprol XL] 150 mg PO DAILY #30 tab Continue Sacubitril/Valsartan [Entresto 49 mg-51 mg Tablet] 1 tab PO BID Spironolactone [Aldactone] 50 mg PO DAILY Sacubitril/Valsartan [Entresto 24 mg-26 mg Tablet] 1 tab PO BID Aspirin EC [Ecotrin Low Dose] 81 mg PO DAILY Dapagliflozin Propanediol [Farxiga] 10 mg PO DAILY Atorvastatin [Lipitor] 20 mg PO DAILY Ketorolac 0.5% Ophth Soln [Acular 0.5%] 1 drop RIGHT EYE QID Ketorolac 0.5% Ophth Soln [Acular 0.5%] 1 drop LEFT EYE BID Moxifloxacin HCl [Moxifloxacin 0.5%] 1 drop RIGHT EYE BID prednisoLONE ACETATE 1% OPHTH [Pred Forte 1%] 1 drop RIGHT EYE QID prednisoLONE ACETATE 1% OPHTH [Pred Forte 1%] 1 drop LEFT EYE BID Discontinued carvediloL [Coreg] 12.5 mg PO BID Discharge Medication List Sacubitril/Valsartan [Entresto 49 mg-51 mg Tablet] 1 tab PO BID 05/18/18 [History] Spironolactone [Aldactone] 50 mg PO DAILY 09/11/20 [History] Aspirin EC [Ecotrin Low Dose] 81 mg PO DAILY 12/20/23 [History] Dapagliflozin Propanediol [Farxiga] 10 mg PO DAILY 12/20/23 [History] Sacubitril/Valsartan [Entresto 24 mg-26 mg Tablet] 1 tab PO BID 12/20/23 [History] Atorvastatin [Lipitor] 20 mg PO DAILY 01/31/24 [History] Ketorolac 0.5% Ophth Soln [Acular 0.5%] 1 drop LEFT EYE BID 01/31/24 [History] Ketorolac 0.5% Ophth Soln [Acular 0.5%] 1 drop RIGHT EYE QID 01/31/24 [History] Moxifloxacin HCl [Moxifloxacin 0.5%] 1 drop RIGHT EYE BID 01/31/24 [History] prednisoLONE ACETATE 1% OPHTH [Pred Forte 1%] 1 drop LEFT EYE BID 01/31/24 [History] prednisoLONE ACETATE 1% OPHTH [Pred Forte 1%] 1 drop RIGHT EYE QID 01/31/24 [History] Furosemide [Lasix] 20 mg PO DAILY #30 tab 02/04/24 [Rx] Ipratropium-Albuterol Nebulize [Duoneb 0.5 mg-3 mg/3 ml Soln] 3 ml INHALATION RT-QID #100 each 02/04/24 [Rx] Metoprolol Succinate (ER) [Toprol XL] 150 mg PO DAILY #30 tab 02/04/24 [Rx] methylPREDNISolone Dose Pack [Medrol Dose Pack] 4 mg PO DAILY #1 pack 02/04/24 [Rx] Follow up Appointment(s)/Referral(s): Jackson Michel MD [STAFF PHYSICIAN] - 10 Days Dharmesh Callahan MD [Primary Care Provider] - 1-2 days Patient Instructions/Handouts: Heart Failure (DC), Using Oxygen at Home (DC), Wearable Cardioverter Defibrillator (DC) Discharge Disposition: HOME WITH HOME HEALTH SERVICES
[2024-02-05] MEDS ORDERED: METOPROLOL SUCCINATE (ER) 50 MG TAB.ER.24H PO SCH (09:00)
[2024-02-05] MEDS ORDERED: FUROSEMIDE 20 MG TAB PO SCH (09:00)
== END 2024-02-04 16:41 | disposition home health service (06) | DRG 291 ==
LOC: EC 22:21 → 3SCARD 01-31 01:26
PROVIDERS: ADMIT Family Medicine; ATTEND Family Medicine
DX: I11.0 Hypertensive heart disease with heart failure (principal); I50.23 Acute on chronic systolic (congestive) heart failure; J96.01 Acute respiratory failure with hypoxia; T82.190A Other mechanical complication of cardiac electrode, initial encounter; J44.1 Chronic obstructive pulmonary disease with (acute) exacerbation; J98.11 Atelectasis; F32.A Depression, unspecified; E66.9 Obesity, unspecified; E78.5 Hyperlipidemia, unspecified; G47.33 Obstructive sleep apnea (adult) (pediatric); L30.9 Dermatitis, unspecified; D72.829 Elevated white blood cell count, unspecified; I25.10 Atherosclerotic heart disease of native coronary artery without angina pectoris; I25.5 Ischemic cardiomyopathy; J84.10 Pulmonary fibrosis, unspecified; Z68.36 Body mass index [BMI] 36.0-36.9, adult; Y71.2 Prosthetic and other implants, materials and accessory cardiovascular devices associated with adverse incidents; Z87.891 Personal history of nicotine dependence; Z79.82 Long term (current) use of aspirin; Z79.84 Long term (current) use of oral hypoglycemic drugs; Z79.899 Other long term (current) drug therapy; Z95.810 Presence of automatic (implantable) cardiac defibrillator; Z20.822 Contact with and (suspected) exposure to COVID-19
CPT/HCPCS: 36415; 71045; 71275; 80053; 83735; 83880; 84145; 84443; 84484; 85025; 85027; 85379; 85610; 85730; 87636; 93005; 93306; 94640; 96372; 96374; 96375; 96376; 99291

== ENCOUNTER → 2024-02-21 | Outpatient (CLI) | payer MEDICARE ==
[2024-02-21 14:58] LABS: HCT 50.4 % (39.6-50.0); HGB 15.6 g/dL (13.0-17.0); MCH 28.5 pg (27.0-32.0); Mean Platelet Volume 12.8 FL (9.5-12.2); NRBC Per 100 WBC 0 X 10*3/uL (0.00-0.01); Platelet Count 191 X 10*3/uL (140-440); RBC 5.48 X 10*6/uL (4.40-5.60); RDW 14.4 % (11.5-14.5); WBC 11.02 X 10*3/uL (4.50-10.00)
[2024-02-21 15:32] LABS: Blood Urea Nitrogen 22.2 mg/dL (9.0-27.0); Carbon Dioxide 25.3 mmol/L (21.6-31.8); Chloride 102 mmol/L (96-109); Potassium 5.2 mmol/L (3.5-5.5); Sodium 139 mmol/L (135-145)
== END | disposition home or self-care (01) ==
LOC: LABPAT 09:14
PROVIDERS: ATTEND Internal Medicine Clinical Cardiac Electrophysiology
DX: Z01.818 Encounter for other preprocedural examination
CPT/HCPCS: 36415; 80051; 82565; 84520; 85027

== ENCOUNTER 2024-03-06 11:56 | Day surgery (SDC) | payer MEDICARE ==
[2024-03-03 11:03] VITALS: BMI 36.3
[~2024-03-06 11:56] MED LIST changes: +HYDROmorphone 0.5 MG/0.5 ML SYRINGE IVP PRN; -LACTATED RINGERS 1,000 ML IV SCH; +ONDANSETRON 4 MG/2 ML VIAL IVP PRN; -TETRACAINE 0.5% OPHTH (PF) DROPS 4 ML BTL OP PRN; +VANCOMYCIN IV PER PHARMACY 1 EACH MISC MISCELLANE PRN
[2024-03-06] MEDS: SODIUM CHLORIDE 0.9% 1,000 ML IV SCH ×2 (12:11→22:57)
[2024-03-06] MEDS: IV FLUID CONTINUATION 1,000 ML IV ONE (12:13)
[2024-03-06] MEDS: VANCOMYCIN 1,500 MG in SODIUM CHLORIDE 0.9% 500 ML 500 ML IVPB ONE (12:24)
[2024-03-06] MEDS: MIDAZOLAM 2 MG/2 ML VIAL IV ONE (13:47)
[2024-03-06] MEDS ORDERED: MIDAZOLAM 2 MG/2 ML VIAL ONE (14:59)
[2024-03-06] MEDS ORDERED: ROCURONIUM 10 MG/ML (5 ML VIAL) IV ONE (14:59)
[2024-03-06] MEDS ORDERED: ePHEDrine 50 MG/ML 1 ML VIAL ONE (14:59)
[2024-03-06] MEDS ORDERED: PHENYLEPHRINE 10 MG/ML VIAL ONE (14:59)
[2024-03-06] MEDS ORDERED: GLYCOPYRROLATE 0.2 MG/ML 2 ML VIAL ONE (14:59)
[2024-03-06] MEDS ORDERED: SUCCINYLCHOLINE CHLORIDE 200 MG/10 ML VIAL IV ONE (14:59)
[2024-03-06] MEDS ORDERED: LIDOCAINE 1% INJ 10MG/ML (20 ML MDV) ONE (14:59)
[2024-03-06] MEDS ORDERED: fentaNYL (PF) 50 MCG/ML 2 ML AMP ONE (14:59)
[2024-03-06] MEDS ORDERED: PROPOFOL 10 MG/ML 20 ML VIAL IV ONE (14:59)
[2024-03-06] MEDS: HEPARIN SODIUM,PORCINE (1 ML) 2,500 UNIT in SODIUM CHLORIDE 0.9% 250 ML IRRIGATION ONE (15:07)
[2024-03-06] MEDS: IOPAMIDOL-370 100ML BTL IVP ONE (15:41)
[2024-03-06] MEDS: LIDOCAINE 1% INJ 10MG/ML (20 ML MDV) SQ ONE (16:01)
[2024-03-06] MEDS: ROPIVACAINE 5 MG/ML 30 ML VIAL MISCELLANE ONE (16:06)
[2024-03-06] MEDS: ceFAZolin 1 GM in SODIUM CHLORIDE 0.9% IRRIG BTL 250 ML IRRIGATION PRN (16:08)
[2024-03-06] MEDS ORDERED: ACETAMINOPHEN TAB 325 MG TAB PO PRN (17:59)
--- NOTE | 2024-03-06 18:29 | P.EPPROC ---
- EP Procedure Note Electrophysiology Procedure Note: Diagnosis ICD lead fracture resulting in inappropriate ICD therapy on account of detection of noise Occluded left subclavian vein Status post BiV ICD for nonischemic cardiomyopathy with improvement in LV function with BiV pacing and guideline directed medical treatment Device approaching STEFANIE within 1 year Procedures performed Right-sided single coil ICD lead ( DF 4 Medtronic extra long lead, 72 cm lead model number [id number], 72 cm in length and serial number [id number]) Lead tunneled across to the left side Old BiV ICD explanted Implantation of new biventricular ICD, left-sided New subfascial pocket more medially located, to facilitate connection with right-sided tunneled ICD lead Details Patient received IV vancomycin prior to entering the lab. The entire anterior chest was prepped for access to the left pectoral and right pectoral areas. Right upper extremity venogram revealed patent right subclavian vein. Axillary vein access, extrathoracic was obtained from the right side percutaneously. The incision was then planned accordingly. A small right-sided incision was made. The right-sided single coil extra long Medtronic ICD lead was placed in the RV apex. Care was taken to stay away from the coil of the old, fractured ICD lead had been implanted in the mid to low RV septum. This was confirmed in both CHINESE and SHAY views. The lead was then secured to the underlying pectoralis fascia with 2 leads sleeves and tunneled across to the left side later taking care of t he shortness distance/route was used. This was later closed in 3 layers after placing an antibiotic pouch in this pocket The left pectoral area incision was made after local anesthesia. This was a fluoroscopic guided incision location to avoid underlying leads and to prepare a new medially located subfascial pocket to facilitate connection with the right sided tunneled lead. The old biventricular ICD generator was explanted the leads were freed from the surrounding tissue. A new medially located subfascial pocket was made. Hemostasis was assured. The new generator was implanted and connected to the right sided ICD lead. Subsequently the atrial lead was connected and then the LV lead. The device was then secured more medially with the single nonabsorbable suture. The old fractured ICD lead was cut capped and secured to the pectoralis muscle. Antibiotic pouch placed in the pocket pocket irrigated with antibiotic solution before that. Then closed in 3 layers and dressed per protocol This is a long procedure involving a right sided implant fluoroscopically guided location of the access and the incision on both sides ensuring that the right sided lead did not have any sharp bands or kinks and crossed over directly to the left side, shortest distance. Multiple fluoroscopic views were taken to ensure this as well as that the lead in the right ventricle was adequate dista nce away and was not in contact with the old ICD lead The patient Toller the procedure well without any acute complications Defibrillation level testing VF was induced successfully detected and internally defibrillated with a 10 J shock anode vector Charge time 1.5 seconds. Shock impedance 80 ohms. No post shock noise The device was then programmed according to [facility] programming DDDR 50-130 bpm paced AV delay of 150 ms LV offset of 35 ms Patient tolerated the procedure well without any acute complications
[2024-03-06] MEDS: SACUBITRIL/VALSARTAN 24 MG-26 MG TABLET PO SCH (21:19)
[2024-03-06] MEDS: ACETAMINOPHEN IV (For NPO) 1,000 MG in EMPTY BAG 1 BAG IVPB ONE (21:19)
[2024-03-06] MEDS: SACUBITRIL/VALSARTAN 49 MG-51 MG TABLET PO SCH (21:19)
[2024-03-06] MEDS: ONDANSETRON 4 MG/2 ML VIAL IVP ONE (22:55)
[2024-03-06] MEDS: DEXAMETHASONE SOD PHOSPHATE 4 MG/ML 1 ML VIAL IV ONE (22:55)
[2024-03-06] MEDS: LACTATED RINGERS 1,000 ML IV SCH (22:57)
[2024-03-07 08:10] VITALS: RESP 16; TEMP 98.5
[2024-03-07] MEDS: DAPAGLIFLOZIN PROPANEDIOL 10 MG TABLET PO SCH (08:15)
[2024-03-07] MEDS: FUROSEMIDE 20 MG TAB PO SCH (08:15)
[2024-03-07] MEDS: ATORVASTATIN 20 MG TAB PO SCH (08:15)
[2024-03-07] MEDS: METOPROLOL SUCCINATE (ER) 50 MG TAB.ER.24H PO SCH (08:15)
[2024-03-07] MEDS: SPIRONOLACTONE 25 MG TAB PO SCH (08:15)
[2024-03-07] MEDS: ASPIRIN 81 MG PO SCH (08:15)
[2024-03-07] MEDS: SYMBICORT 80-4.5 MCG INHALER INHALATION SCH (08:56)
[2024-03-07] MEDS: IPRATROPIUM 0.5 MG/2.5 ML NEBU INHALATION SCH (08:56)
[2024-03-07 10:02] VITALS: BP 116/60
[2024-03-07] MEDS: FUROSEMIDE 20 MG TAB PO STA (10:34)
--- NOTE | 2024-03-07 10:48 | XR ---
EXAMINATION TYPE: XR chest 2V DATE OF EXAM: 03/07/2024 COMPARISON: 01/30/2024 HISTORY: 63-year-old male placement check TECHNIQUE: Frontal and lateral views FINDINGS: Left anterior chest wall AICD generator with multiple leads. There appears to be a right atrial lead, coronary sinus lead, and now 2 right ventricular leads. One of the leads loops to the right upper ch est before entering the heart. Heart normal size. Mild hyperinflation. Stringy atelectasis in the low er lungs. No pleural effusion. No appreciable pneumothorax. IMPRESSION: 1. Left anterior chest wall AICD generator. We count 4 leads. This includes a new right ventricular s hocker lead and a coronary sinus lead. One of the lead wires is looped over the right upper chest. 2. No appreciable pneumothorax. [facility], , 03/07/2024 10:45 AM
[2024-03-07] MEDS: IPRATROPIUM-ALBUTEROL 3 ML NEB INHALATION PRN (11:42)
[2024-03-07 11:50] VITALS: PULSE 76
== END 2024-03-07 13:37 | disposition home or self-care (01) ==
LOC: CATHEP 11:56 → 6NMEDSUR 17:45 → CATHEP 03-07 13:37
PROVIDERS: ATTEND Internal Medicine Clinical Cardiac Electrophysiology
CPT/HCPCS: 33241; 33249; 71046; 93641; 94640; 94760

== ENCOUNTER 2024-03-07 18:32 | Observation (INO) | payer MEDICARE ==
--- NOTE | 2024-03-07 18:40 | P.HPCAR ---
History of Present Illness This is Dr. Michel dictating an H/P on this patient The patient was interviewed and examined IMPRESSION / ASSESSMENT: Right-sided ICD lead dislodgment Biventricular ICD for nonischemic cardiomyopathy CHF class II COPD PLAN: ICD tacky therapies turned off LV pacing continues Resume home medications and inhalers Plan for for ICD lead repositioning HPI Patient remained short of breath post discharge He was brought in for an x-ray and SHAY and FINNISH positions which revealed dislodgment of the lead from the RV apex to the RV septum While the thresholds are excellent the R waves are variable, impedance is stable He complains of more short miss of breath than usual ROS: No fever chills or rigors, no cough, phlegm or expectoration, no nausea, vomiting or diarrhea, no hematuria, dysuria, no musculoskeletal complaints, no strokes or seizures, no skin lesions. 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 [facility] AICD, eye surgery [place] Past Anesthesia/Blood Transfusion Reactions: No Reported Reaction Type of Cardiac Device: Permanent Pacemaker, AICD Device Placement Date:: 01/23/2013 Additional Past Alcohol Use History / Comment(s): quit smoking 25 yrs ago., 1ppd for 20 yrs. - Past Family History Daughter(s) Family Medical History: Cancer Results Current Medications Generic Name Dose Route Start Last Admin Trade Name Freq PRN Reason Stop Dose Admin Albuterol/Ipratropium 3 ml 03/07/24 18:36 Ipratropium-Albuterol 3 Ml Neb INHALATION RT-QID PRN sob Atorvastatin Calcium 20 mg 03/08/24 09:00 Atorvastatin 20 Mg Tab PO DAILY MARIA R Dapagliflozin 10 mg 03/08/24 09:00 Dapagliflozin Propanediol 10 Mg Tablet PO DAILY MARIA R Furosemide 20 mg 03/08/24 09:00 Furosemide 20 Mg Tab PO DAILY MARIA R Metoprolol Succinate 150 mg 03/08/24 09:00 Metoprolol Succinate (Er) 50 Mg Tab.Er.24h PO DAILY [facility] Non-Formulary Medication 50 mg 03/08/24 09:00 Spironolactone [Aldactone] PO DAILY MARIA R Non-Formulary Medication 2 puff 03/07/24 18:45 Albuterol Inhaler INHALATION Q6H MARIA R Non-Formulary Medication 81 mg 03/08/24 09:00 Aspirin Ec PO DAILY [facility] Non-Formulary Medication 1 puff 03/08/24 09:00 Fluticasone/Umeclidin/Vilanter [Trelegy Ellipta 100-62.5-25] INHALATION DAILY [facility] Sacubitril/Valsartan 1 each 03/07/24 21:00 Sacubitril/Valsartan 49 Mg-51 Mg Tablet PO BID [facility] Sacubitril/Valsartan 1 each 03/07/24 21:00 Sacubitril/Valsartan 24 Mg-26 Mg Tablet PO BID [facility]
[2024-03-07] MEDS: IPRATROPIUM-ALBUTEROL 3 ML NEB INHALATION SCH (18:58)
[2024-03-07] MEDS ORDERED: ALBUTEROL NEBULIZED 2.5 MG/3 ML INHALATION SCH (20:00)
[2024-03-07] MEDS: SACUBITRIL/VALSARTAN 24 MG-26 MG TABLET PO SCH (20:25)
[2024-03-07] MEDS: SACUBITRIL/VALSARTAN 49 MG-51 MG TABLET PO SCH (20:26)
[2024-03-07] MEDS: SODIUM CHLORIDE 0.9% 1,000 ML IV SCH (20:44)
[2024-03-08] MEDS: METOPROLOL SUCCINATE (ER) 50 MG TAB.ER.24H PO SCH (08:33)
[2024-03-08] MEDS: ATORVASTATIN 20 MG TAB PO SCH (08:33)
[2024-03-08] MEDS: ASPIRIN 81 MG PO SCH (08:33)
[2024-03-08] MEDS: SPIRONOLACTONE 25 MG TAB PO SCH (08:33)
[2024-03-08] MEDS: DAPAGLIFLOZIN PROPANEDIOL 10 MG TABLET PO SCH (08:34)
[2024-03-08] MEDS: FUROSEMIDE 20 MG TAB PO SCH (08:34)
[2024-03-08] MEDS: SYMBICORT 80-4.5 MCG INHALER INHALATION SCH (09:29)
[2024-03-08] MEDS: IPRATROPIUM-ALBUTEROL 3 ML NEB INHALATION PRN (10:56)
--- NOTE | 2024-03-08 12:31 | CA ---
Transthoracic Echo Report Name: Elias Honeycutt Age: 63 Gender: M : 1960 Exam Date: 03/08/2024 09:30 Exam Location: [facility] Ht (in): 67 Wt (lb): 233 Ordering Physician: Jackson Michel MD ([id number]) Attending/Referring Phys: Brand Sales Consultant Terra Phelps RDCS Procedure CPT: Indications: pericardial effusion Cardiac Hx: limited study Technical Quality: Fair Contrast 1: Total Dose (mL): Contrast 2: Total Dose (mL): MEASUREMENTS (Male / Female) Normal Values FINDINGS Left Ventricle Left ventricular ejection fraction is estimated at 50-55 %. Right Ventricle Pacer wire in RV Right Atrium Left Atrium Mitral Valve Aortic Valve Tricuspid Valve Pulmonic Valve Pericardium Small pericardial effusion Aorta CONCLUSIONS 1. Left ventricle systolic function borderline normal 2. Small pericardial effusion. Previewed by: Dr. Rashad Jones MD (Electronically Signed) Final Date: 08 March 2024 12:29
[2024-03-08 20:19] LABS: Glucose,Whole Blood 132 mg/dL (70-110)
[2024-03-09] MEDS: VANCOMYCIN 1,500 MG in SODIUM CHLORIDE 0.9% 500 ML 500 ML IVPB ONE (05:11)
[2024-03-09] MEDS: SODIUM CHLORIDE 0.9% 1,000 ML IV SCH (05:13)
[2024-03-09] MEDS ORDERED: PROPOFOL 10 MG/ML 20 ML VIAL IV ONE (13:36)
[2024-03-09] MEDS ORDERED: PHENYLEPHRINE-0.9% NACL SYG 1,000 MCG/10 ML SYRINGE ONE (13:36)
[2024-03-09] MEDS ORDERED: LIDOCAINE 1% INJ 10MG/ML (20 ML MDV) ONE (13:36)
[2024-03-09] MEDS: IV FLUID CONTINUATION 1,000 ML IV ONE (13:36)
[2024-03-09] MEDS ORDERED: fentaNYL (PF) 50 MCG/ML 2 ML AMP ONE (13:36)
[2024-03-09] MEDS ORDERED: PHENYLEPHRINE 10 MG/ML VIAL ONE (13:36)
[2024-03-09] MEDS ORDERED: ePHEDrine 50 MG/ML 1 ML VIAL ONE (13:36)
[2024-03-09] MEDS ORDERED: SUCCINYLCHOLINE CHLORIDE 200 MG/10 ML VIAL IV ONE (13:36)
[2024-03-09] MEDS ORDERED: MIDAZOLAM 2 MG/2 ML VIAL ONE (13:36)
[2024-03-09] MEDS: LIDOCAINE 1% INJ 10MG/ML (20 ML MDV) SQ ONE ×2 (14:28→14:37)
[2024-03-09] MEDS: ROPIVACAINE 5 MG/ML 30 ML VIAL MISCELLANE ONE (14:28)
[2024-03-09] MEDS: SODIUM CHLORIDE 0.9% 1,000 ML IV ONE (16:33)
--- NOTE | 2024-03-09 16:42 | P.EPPROC ---
- EP Procedure Note Electrophysiology Procedure Note: Procedure Reposition/revision of the right sided RV lead Then retunneled across to the left side Connected to the ICD-biventricular, more medial location with the header in the cephalad location Original indication for new ICD lead implant was fracture of the left sided lead and a completely occluded left subclavian vein Indication ICD lead dislodgment without any loosening of the lead sleeve sutures. All leads sleeves sutures were intact intraoperatively Details Patient was brought to the EP lab in a fasting state. Written informed consent was obtained prior to the procedure. IV vancomycin administered this morning and intraoperatively IV Kefzol given. The procedure was performed under general anesthesia and the entire anterior left chest was prepped and both the left and right pectoral areas were prepped and draped per protocol First, both the left and right pectoral pocket were reopened. The incision was made directly over the previous surgical site and carried down to level of the generator. The generator was explanted and the ICD lead that had been tunneled across to the left side was disconnected from the generator. Using a long suture and a tunneling tool which sheath, the lead was withdrawn to the right side, while maintaining the sheath within the tunnel to allow for retunneling of the lead back towards the left side. The device had been secured on the left side with a silk suture and this was found to be intact. When the right subfascial pocket was opened, previously 2 leads sleeves had been placed to secure the ICD lead. Both the sleeves and the sutures were secured. The most likely reason for the dislodgment was an internal backing out of the ICD lead into the right atrium which was quite large. A long stylette was used after freeing the leads sleeves. The lead was repositioned in a slightly different position a little above the previous location, on the low RV septum just above the RV apex. Excellent R waves in thresholds noted. This lead was screwed in The intraoperative thresholds were less than 0.5 at 0.5 ms and R waves were greater than 11 mV. Once the lead was positioned and screwed in, care was taken to provide an adequate heel. This was confirmed in the SHAY AP and PHYLLIS views. When compared to the previous days position, we gave a lot Proheal although the lead position 2 days back was quite excellent too. We adjusted the length of the lead available for the left pocket. This lead was then tunneled across to the left side. It was then secured with 2 leads sleeves on the right side to ensure that smooth gentle curve of the lead was present in the pocket without any sharp bands. The lead was then connected to the generator. This time the generator was placed even more medially than before with the header 2 words the head of the patient and the head of ports facing medially. The device was then secured with a single nonabsorbable suture. Antibiotic pouch was replaced in both pockets. Both pockets were irrigated. They were then closed in 4 layers each. Multiple fluoroscopic views were taken of the entire lead in the RV and the RA to ensure adequate heel, the tunneled area and both the left and right pockets to ensure that there were no kinks and that there was adequate heel provided. The patient tolerated the procedure well without any acute complications The device was then programmed according to the [employer] programming with DDDR pacing with a short AV delay and an LV offset of 35 ms
[2024-03-09] MEDS: ALBUTEROL NEBULIZED 2.5 MG/3 ML INHALATION STA (17:01)
[2024-03-09] MEDS: ACETAMINOPHEN IV (For NPO) 1,000 MG in EMPTY BAG 1 BAG IVPB ONE (18:05)
[2024-03-09] MEDS: ceFAZolin 1,000 MG in SODIUM CHLORIDE 0.9% IRRIG BTL 250 ML IRRIGATION ONE (21:29)
--- NOTE | 2024-03-10 08:04 | P.DS ---
Providers Date of admission: 03/07/24 18:35 Attending physician: Jackson Michel Primary care physician: Stated None Hospital Course: Patient is doing well this morning. Tenderness in both sites in the pectoral area but no swelling no hematoma minimal soakage Heart sounds are normal Breath sounds are reduced bilaterally with there are no rhonchi, reduced air entry which is chronic Blood pressure 110/70 mmHg pulse rate in the 80s afebrile Impression Implantation of a right sided DF4 lead, ICD, extra long 72 cm which is then tunneled to the left side Symptomatic lead dislodgment requiring repositioning along with a much greater heel in the right atrium which is enlarged Connected to a biventricular ICD in the left pocket Today's chest x-ray shows lead in stable position Plan Continue current medications and heart failure medications Device interrogation Antibiotics to complete Will discharge home today and follow-up in the office next week Plan - Discharge Summary New Discharge Prescriptions: No Action Sacubitril/Valsartan [Entresto 49 mg-51 mg Tablet] 1 tab PO BID Spironolactone [Aldactone] 50 mg PO DAILY Sacubitril/Valsartan [Entresto 24 mg-26 mg Tablet] 1 tab PO BID Ipratropium-Albuterol Nebulize [Duoneb 0.5 mg-3 mg/3 ml Soln] 3 ml INHALATION RT-QID PRN PRN Reason: sob Aspirin EC [Ecotrin Low Dose] 81 mg PO DAILY Dapagliflozin Propanediol [Farxiga] 10 mg PO DAILY Atorvastatin [Lipitor] 20 mg PO DAILY Furosemide [Lasix] 20 mg PO DAILY #30 tab Metoprolol Succinate (ER) [Toprol XL] 150 mg PO DAILY #30 tab Albuterol Inhaler [Ventolin Hfa Inhaler] 1 - 2 puff INHALATION RT-Q6H PRN PRN Reason: Shortness Of Breath Fluticasone/Umeclidin/Vilanter [Trelegy Ellipta 100-62.5-25] 1 puff INHALATION RT-DAILY Albuterol Nebulized [Ventolin Nebulized] 2.5 mg INHALATION RT-QID PRN PRN Reason: Shortness Of Breath Discharge Medication List Sacubitril/Valsartan [Entresto 49 mg-51 mg Tablet] 1 tab PO BID 05/18/18 [History] Spironolactone [Aldactone] 50 mg PO DAILY 09/11/20 [History] Aspirin EC [Ecotrin Low Dose] 81 mg PO DAILY 12/20/23 [History] Dapagliflozin Propanediol [Farxiga] 10 mg PO DAILY 12/20/23 [History] Sacubitril/Valsartan [Entresto 24 mg-26 mg Tablet] 1 tab PO BID 12/20/23 [History] Atorvastatin [Lipitor] 20 mg PO DAILY 01/31/24 [History] Furosemide [Lasix] 20 mg PO DAILY #30 tab 02/04/24 [Rx] Metoprolol Succinate (ER) [Toprol XL] 150 mg PO DAILY #30 tab 02/04/24 [Rx] Albuterol Inhaler [Ventolin Hfa Inhaler] 1 - 2 puff INHALATION RT-Q6H PRN 03/03/24 [History] Fluticasone/Umeclidin/Vilanter [Trelegy Ellipta 100-62.5-25] 1 puff INHALATION RT-DAILY 03/03/24 [History] Ipratropium-Albuterol Nebulize [Duoneb 0.5 mg-3 mg/3 ml Soln] 3 ml INHALATION RT-QID PRN 03/03/24 [History] Albuterol Nebulized [Ventolin Nebulized] 2.5 mg INHALATION RT-QID PRN 03/07/24 [History]
[2024-03-10 08:11] VITALS: BP 118/74; RESP 18; TEMP 98.5
[2024-03-10 08:19] VITALS: PULSE 80
--- NOTE | 2024-03-10 08:53 | XR ---
EXAMINATION TYPE: XR chest 2V DATE OF EXAM: 03/10/2024 COMPARISON: 03/07/2024 HISTORY: 63-year-old male with placement check TECHNIQUE: Frontal and lateral views FINDINGS: Left anterior chest wall pacemaker generator. The generator device has been rotated 90 degrees from t he comparison exam. Right atrial and coronary sinus lead. There are 2 right ventricular shocker leads . One of the wires courses to the right and projects over the right upper lobe. Heart normal size. Mi ld patchy bibasilar densities are similar and probably represent atelectasis/scarring. No appreciable pneumothorax. IMPRESSION: 1. Repositioning of the left anterior chest wall pacemaker generator, now rotated 180 degrees. 2. COPD. Strandy scarring or atelectasis at the lung bases. [facility], , 03/10/2024 8:51 AM
[2024-03-10] MEDS: ACETAMINOPHEN TAB 325 MG TAB PO PRN (11:13)
== END 2024-03-10 11:30 | disposition home or self-care (01) ==
LOC: 6NMEDSUR 18:35
PROVIDERS: ADMIT Internal Medicine Clinical Cardiac Electrophysiology; ATTEND Internal Medicine Clinical Cardiac Electrophysiology
DX: I42.8 Other cardiomyopathies (principal); T82.120A Displacement of cardiac electrode, initial encounter; Y82.8 Other medical devices associated with adverse incidents; I11.0 Hypertensive heart disease with heart failure; I50.9 Heart failure, unspecified; J44.9 Chronic obstructive pulmonary disease, unspecified; E78.5 Hyperlipidemia, unspecified; G47.30 Sleep apnea, unspecified; Z87.891 Personal history of nicotine dependence; Z95.810 Presence of automatic (implantable) cardiac defibrillator; Z79.899 Other long term (current) drug therapy; Z79.82 Long term (current) use of aspirin
CPT/HCPCS: 94640 ×5; 94760 ×2; 93308; 93005; 33215; 71046; G0379; G0378 ×4; J2250; J3370; J0330; J0690 ×2; J2003; J3010; J2795; J0131; J2704; J2371 ×2